=== PATIENT | male | born 1960 | race African-American/Black ===

== ENCOUNTER 2016-09-25 10:37 | Inpatient (IN) | payer OTHER ==
[2016-09-25 11:06] VITALS: BMI 30.4
--- NOTE | 2016-09-25 14:31 | HP ---
CIWA Score - CIWA Score Nausea/Vomitin Muscle Tremors: 4-Moderate,w/Arms Extend Anxiety: 3 Agitation: 4-Moderately Restless Paroxysmal Sweats: 3 Orientation: 0-Oriented Tacttile Disturbances: 1-Very Mild Itch/Numbness Auditory Disturbances: 0-None Visual Disturbances: 0-None Headache: 1-Very Mild CIWA-Ar Total Score: 19 Admission ROS BHS - HPI Chief Complaint: alcohol withdrawal symptoms, requesting inpatient detoxification from lcohol Allergies/Adverse Reactions: Allergies Allergy/AdvReac Type Severity Reaction Status Date / Time chlordiazepoxide HCl Allergy Severe Rash Verified 09/25/16 11:28 [From Librium] History of Present Illness: 56 yo m w h/o alcohol dependence and TABBY, drinks 1/5th spirits daily, no h/o seizures, DTS in past, hallucinated saw spiders on wall, never intabated or admitted to ICU, denies all other illicit drug use PMHx hep c, h/o IDU heorin and cocaine in 80s, no longer using these medications cleared virus with treatment in 2005, nicotien dependence. ros +ve for anxiety, depression , insomnia and tremors, sweats, when he does not drink. Exam Limitations: No Limitations - Ebola screening Have you traveled outside of the country in the last 21 days: No Have you had contact with anyone from an Ebola affected area: No Have you been sick,other than usual withdrawal symptoms: No Do you have a fever: No - Review of Systems Constitutional: Diaphoresis, Loss of Appetite, Changes in sleep, Weakness, Weight Stable EENT: reports: No Symptoms Reported Respiratory: reports: No Symptoms reported Cardiac: reports: No Symptoms Reported GI: reports: No Symptoms Reported, Poor Appetite, Poor Fluid Intake, Indigestion : reports: No Symptoms Reported Integumentary: reports: No Symptoms Reported Neuro: reports: Headache, Tremors, Weakness Endocrine: reports: No Symptoms Reported Hematology: reports: No Symptoms Reported Psychiatric: reports: Judgement Intact, Mood/Affect Appropiate, Orientated x3, Anxious, Depressed Other Systems: Reviewed and Negative Patient History - Patient Medical History Hx Anemia: No Hx Asthma: No Hx Chronic Obstructive Pulmonary Disease (COPD): No Hx Cancer: No Hx Cardiac Disorders: No Hx Congestive Heart Failure: No Hx Hypertension: No Hx Hypercholesterolemia: No Hx Pacemaker: No HX Cerebrovascular Accident: No Hx Seizures: No Hx Dementia: No Hx Diabetes: No Hx Gastrointestinal Disorders: No Hx Liver Disease: No Hx Genitourinary Disorders: No Hx Sexually Transmitted Disorders: No Hx Renal Disease (ESRD): No Hx Thyroid Disease: No Hx Human Immunodeficiency Virus (HIV): No Hx Hepatitis C: Yes (treated 2005, cleared virus) Hx Depression: No Hx Suicide Attempt: No Hx Bipolar Disorder: No Hx Schizophrenia: No - Patient Surgical History Past Surgical History: Yes Hx Neurologic Surgery: No Hx Cataract Extraction: No Hx Cardiac Surgery: No Hx Lung Surgery: No Hx Breast Surgery: No Hx Breast Biopsy: No Hx Abdominal Surgery: No Hx Appendectomy: No Hx Cholecystectomy: No Hx Genitourinary Surgery: No Hx Section: No Hx Orthopedic Surgery: Yes (Fx bilateral ankles s/p) Hx Hysterectomy: No Anesthesia Reaction: No - PPD History Previous Implant?: Yes Documented Results: Negative w/o proof Implanted On Prior [facility] Admission?: No PPD to be Administered?: Yes - Reproductive History Patient is a Female of Child Bearing Age (11 -55 yrs old): No Patient : No - Smoking Cessation Smoking history: Current every day smoker Have you smoked in the past 12 months: Yes Aproximately how many cigarettes per day: 10 Cigars Per Day: 0 Hx Chewing Tobacco Use: No Initiated information on smoking cessation: Yes 'Breaking Loose' booklet given: 09/25/16 - Substance & Tx. History Hx Alcohol Use: Yes Hx Substance Use: No Substance Use Type: Alcohol Hx Substance Use Treatment: Yes (2014 inpatient [facility]? 09/01 [facility]) - Substances Abused Alcohol Route: Oral Frequency: Daily Amount used: FIFTH OF VODKA Age of first use: 16 Date of Last Use: 09/25/16 Family Disease History - Family Disease History Family Disease History: Diabetes: Father (alcoholism), Other: Father, Mother ( alcoholism) Admission Physical Exam BHS - Vital Signs Vital Signs: Vital Signs - 24 hr 09/25/16 11:05 Temperature 96.4 F L Pulse Rate 118 H Respiratory 18 Rate Blood Pressure 153/82 - Physical General Appearance: Yes: Nourished, Appropriately Dressed, Disheveled, Mild Distress, Obese, Sweating, Anxious HEENTM: Yes: Within Normal Limits, EOMI, Hearing grossly Normal, Normal ENT Inspection, Normocephalic, Normal Voice, ANDREW, Pharynx Normal Respiratory: Yes: Within Normal Limits, Chest Non-Tender, Lungs Clear, Normal Breath Sounds, No Respiratory Distress, No Accessory Muscle Use Neck: Yes: Within Normal Limits, No masses,lesions,Nodules, Supple, Trachea in good position Breast: Yes: Breast Exam Deferred Cardiology: Yes: Within Normal Limits, Regular Rhythm, Regular Rate, S1, S2 Abdominal: Yes: Normal Bowel Sounds, Non Tender, Soft, Protuberent, Distended Genitourinary: Yes: Within Normal Limits Back: Yes: Within Normal Limits, Normal Inspection Musculoskeletal: Yes: Within Normal Limits, full range of Motion, Gait Steady Extremities: Yes: Normal Capillary Refill, Normal Range of Motion, Non-Tender, Tremors Neurological: Yes: [facility] II-XII NML intact, Fully Oriented, Alert, Motor Strength 5/5, Normal Response, Depressed Affect Integumentary: Yes: Normal Color, Warm, Diaphoresis, Moist Lymphatic: Yes: Within Normal Limits - Addiitonal Findings: withdrawal sx - Diagnostic (1) Alcohol dependence with uncomplicated withdrawal Current Visit: Yes Status: Acute (2) Nicotine dependence unspecified, with withdrawal Current Visit: Yes Status: Acute (3) Hepatitis C Current Visit: Yes Status: Acute (4) GERD (gastroesophageal reflux disease) Current Visit: Yes Status: Acute (5) Obesity Current Visit: Yes Status: Acute Cleared for Admission [facility] - Detox or Rehab [facility] Level of Care: Medically Managed Detox Regimen/Protocol: Valium [facility] Breath Alcohol Content Breath Alcohol Content: 0.169 Urine Drug Screen - Control Is Test Valid: Yes - Results Drug Screen Negative: No Urine Drug Screen Results: TCA-Tricyclic Antidepress
[2016-09-25] MEDS ORDERED: P-EPHED 60MG/TRIPROLIDI 2.5MG TABLET PO PRN (14:43)
[2016-09-25] MEDS ORDERED: IBUPROFEN 400 MG TABLET (FP) PO PRN (14:43)
[2016-09-25] MEDS ORDERED: NICOTINE POLACRILEX 2 MG GUM BUC PRN (14:43)
[2016-09-25] MEDS ORDERED: MAG HYDROX/AL HYDROX/SIMETH 30 ML UNIT-DOSE CUP PO PRN (14:43)
[2016-09-25] MEDS ORDERED: MENTHOL/PHENOL 1 EACH UD MM PRN (14:43)
[2016-09-25] MEDS ORDERED: ACETAMINOPHEN 325 MG TABLET (FP) PO PRN (14:43)
[2016-09-25] MEDS ORDERED: hydrOXYzine PAMOATE 50 MG CAPSULE (FP) PO PRN (14:43)
[2016-09-25] MEDS ORDERED: MAGNESIUM HYDROX 2400MG/30ML ORAL SUSPENSION 30 ML CUP PO PRN (14:43)
[2016-09-25] MEDS ORDERED: LOPERAMIDE HCL 2 MG CAPSULE PO PRN (14:43)
[2016-09-25] MEDS ORDERED: guaiFENesin/D-METHORPHAN HB 10 ML UNIT-DOSE CUPS PO PRN (14:43)
[2016-09-25] MEDS ORDERED: MAGNESIUM CITRATE 300 ML BOTTLE PO PRN (14:43)
[2016-09-25] MEDS ORDERED: diphenhydrAMINE HCL 50 MG CAPSULE PO PRN (14:43)
[2016-09-25] MEDS ORDERED: diazePAM 5 MG TABLET PO ONE (14:47)
[2016-09-25 15:00] LABS: HIV 1 & 2 AB NEGATIVE; HIV 1 AGp24 NEGATIVE
[2016-09-25] MEDS: NICOTINE 14 MG/24 HOURS TOPICAL PATCH TD SCH (15:25)
[2016-09-25 20:57] LABS: URINE APPEARANCE CLEAR; URINE BILIRUBIN NEGATIVE (NEGATIVE); URINE BLOOD NEGATIVE (NEGATIVE); URINE COLOR YELLOW; URINE GLUCOSE (UA) NEGATIVE (NEGATIVE); URINE KETONE NEGATIVE (NEGATIVE); URINE LEUK ESTERASE NEGATIVE (NEGATIVE); URINE NITRITE NEGATIVE (NEGATIVE); URINE PROTEIN NEGATIVE (NEGATIVE); URINE UROBILINOGEN 2.0 E.U/dl E.U./dl (0.2-1.0)
[2016-09-25] MEDS: diazePAM 5 MG TABLET PO SCH (22:25)
[2016-09-25] MEDS: THIAMINE HCL 100 MG TABLET (FP) PO SCH (22:25)
[2016-09-26] MEDS: diazePAM 5 MG TABLET PO SCH ×3 (05:33→22:21)
--- NOTE | 2016-09-26 10:11 | EKG ---
Test Reason : Blood Pressure : / mmHG Vent. Rate : 099 BPM Atrial Rate : 099 BPM P-R Int : 146 ms QRS Dur : 092 ms QT Int : 336 ms P-R-T Axes : 062 001 034 degrees QTc Int : 431 ms NORMAL SINUS RHYTHM POSSIBLE LEFT ATRIAL ENLARGEMENT NO PREVIOUS ECGS AVAILABLE Confirmed by NARA ELAINE MD ([id number]) on 09/26/2016 10:11:08 AM Referred By: Shahid Elizalde Confirmed By:NARA ELAINE MD
[2016-09-26 10:13] LABS: MCH 30.8 pg (25.7-33.7); MCHC 33.4 g/dl (32.0-35.9); MEAN PLT VOLUME 9.9 fl (7.5-11.1); PLATELET COUNT 124 K/MM3 (134-434); RDW 13.9 % (11.9-15.9)
[2016-09-26] MEDS: PRENATAL VITAMINS W/ FOLIC ACID TABLET (FP) PO SCH (10:26)
[2016-09-26] MEDS: NICOTINE 14 MG/24 HOURS TOPICAL PATCH TD SCH (10:26)
[2016-09-26 10:32] LABS: ALBUMIN 4.4 g/dl (3.4-5.0); ALK PHOS 107 U/L (45-117); ANION GAP 13 (8-16); BILIRUBIN,TOTAL 0.4 mg/dL (0.2-1.0); CALCIUM 8.2 mg/dL (8.5-10.1); CO2 25 mmol/L (21-32); CREATININE 0.9 mg/dL (0.7-1.3); GLUCOSE,RANDOM 93 mg/dL (74-106); SGOT/AST 238 U/L (15-37); SGPT/ALT 170 U/L (12-78); TOT PROT 7.7 g/dl (6.4-8.2)
--- NOTE | 2016-09-26 11:37 | PN ---
S CIWA - CIWA Score Nausea/Vomitin Muscle Tremors: 4-Moderate,w/Arms Extend Anxiety: 4-Mod. Anxious/Guarded Agitation: 4-Moderately Restless Paroxysmal Sweats: 3 Orientation: 0-Oriented Tacttile Disturbances: 1-Very Mild Itch/Numbness Auditory Disturbances: 0-None Visual Disturbances: 0-None Headache: 0-None Present CIWA-Ar Total Score: 19 BHS Progress Note (SOAP) Subjective: nausea, sweats, interrupted sleep, anxiety, tremors Objective: 09/26/16 11:36 Vital Signs - 24 hr 09/25/16 09/25/16 09/25/16 15:42 18:04 21:42 Temperature 97.6 F 98.0 F 97.4 F L Pulse Rate 102 H 101 H 109 H Respiratory 20 20 20 Rate Blood Pressure 148/88 134/71 127/77 09/26/16 09/26/16 09/26/16 00:12 03:30 06:29 Temperature 97.6 F Pulse Rate 83 Respiratory 18 18 18 Rate Blood Pressure 148/98 09/26/16 10:00 Temperature 99.3 F Pulse Rate 92 H Respiratory 20 Rate Blood Pressure 151/98 Laboratory Tests 09/25/16 09/25/16 09/26/16 12:10 19:00 06:00 WBC 5.0 RBC 5.06 Hgb 15.6 Hct 46.5 MCV 92.0 MCHC 33.4 RDW 13.9 Plt Count 124 L MPV 9.9 Sodium Potassium Chloride Carbon Dioxide Anion Gap BUN Creatinine Creat Clearance w eGFR Random Glucose Calcium Total Bilirubin AST ALT Alkaline Phosphatase Total Protein Albumin Urine Color Yellow Urine Appearance Clear Urine pH 5.0 Ur Specific [place] 1.019 Urine Protein Negative Urine Glucose (UA) Negative Urine Ketones Negative Urine Blood Negative Urine Nitrite Negative Urine Bilirubin Negative Urine Urobilinogen 2.0 e.u/dl Ur Leukocyte Esterase Negative HIV 1&2 Antibody Screen Negative HIV P24 Antigen Negative 09/26/16 06:00 WBC RBC Hgb Hct MCV MCHC RDW Plt Count MPV Sodium 141 Potassium 3.7 Chloride 103 Carbon Dioxide 25 Anion Gap 13 BUN 7 Creatinine 0.9 Creat Clearance w eGFR > 60 Random Glucose 93 Calcium 8.2 L Total Bilirubin 0.4 AST 238 H ALT 170 H Alkaline Phosphatase 107 Total Protein 7.7 Albumin 4.4 Urine Color Urine Appearance Urine pH Ur Specific [place] Urine Protein Urine Glucose (UA) Urine Ketones Urine Blood Urine Nitrite Urine Bilirubin Urine Urobilinogen Ur Leukocyte Esterase HIV 1&2 Antibody Screen HIV P24 Antigen Assessment: 09/26/16 11:36 withdrawal sx, elevated bp Plan: cont detox, fluids, encourage ambulation
[2016-09-26] MEDS ORDERED: INFLUENZA VACCINE 45 MCG/0.5 ML (MDV 16-17) IM ONE (12:00)
[2016-09-26] MEDS: amLODIPine BESYLATE 5 MG TABLET (FP) PO SCH (12:15)
--- NOTE | 2016-09-26 14:57 | CONSULT ---
[facility] Psychiatric Consult - Data Date of interview: 09/26/16 Admission source: [facility] Identifying data: Readmission to [facility] for this 56 y/o AA male seeking detox treatment on for alcohol dependence.Patient is single without children,domiciled,unemployed and supported on Public Assistance. Substance Abuse History: - Smoking Cessation. Smoking history: Current every day smoker. Have you smoked in the past 12 months: Yes. Aproximately how many cigarettes per day: 10. Cigars Per Day: 0. Hx Chewing Tobacco Use: No. Initiated information on smoking cessation: Yes. 'Breaking Loose' booklet given : 09/25/16. - Substance & Tx. History. Hx Alcohol Use: Yes. Hx Substance Use : No. Substance Use Type: Alcohol. Hx Substance Use Treatment: Yes (2014 inpatient detox [facility]? 09/01 [facility]). - Substances Abused. Alcohol. Route: Oral. Frequency: Daily. Amount used: FIFTH OF VODKA. Age of first use: 16. Date of Last Use: 09/25/16. Confirmed by patient in my interview. Medical History: Remarkable for a history of hepatitis c (treated in 2005). Psychiatric History: Patient denies. Physical/Sexual Abuse/Trauma History: Patient denies. Additional Comment: Urine Drug Screen Results: TCA-Tricyclic Antidepressant.Noted. Mental Status Exam - Mental Status Exam Alert and Oriented to: Time, Place, Person Cognitive Function: Good Patient Appearance: Well Groomed Mood: Withdrawn, Hopeful Affect: Appropriate, Normal Range Patient Behavior: Fatigued, Appropriate, Cooperative Speech Pattern: Clear, Appropriate Voice Loudness: Normal Thought Process: Goal Oriented Thought Disorder: Not Present Hallucinations: Denies Suicidal Ideation: Denies Homicidal Ideation: Denies Insight/Judgement: Poor Sleep: Poorly, Difficulty falling asleep Appetite: Good Muscle strength/Tone: Normal Gait/Station: Normal Psychiatric Findings - Problem List ([place] 1, 2,3) (1) Alcohol dependence with uncomplicated withdrawal Current Visit: Yes Status: Acute (2) GERD (gastroesophageal reflux disease) Current Visit: Yes Status: Acute (3) Hepatitis C Current Visit: Yes Status: Acute (4) Nicotine dependence unspecified, with withdrawal Current Visit: Yes Status: Acute (5) Obesity Current Visit: Yes Status: Acute (6) Insomnia Current Visit: Yes Status: Acute - Initial Treatment Plan Initial Treatment Plan: Psychoeducation.Detoxification.Zolpidem 5 mg po hs prn.Patient made aware of the risk of parasomnias.He agrees with this careplan.Observation.
[2016-09-26] MEDS: THIAMINE HCL 100 MG TABLET (FP) PO SCH (22:21)
[2016-09-26] MEDS: ZOLPIDEM TARTRATE 5 MG TABLET PO PRN (22:23)
[2016-09-27] MEDS: diazePAM 5 MG TABLET PO PRN ×3 (05:23→17:29)
--- NOTE | 2016-09-27 09:56 | PN ---
S CIWA - CIWA Score Nausea/Vomitin-No Nausea/No Vomiting Muscle Tremors: 3 Anxiety: 4-Mod. Anxious/Guarded Agitation: 4-Moderately Restless Paroxysmal Sweats: 3 Orientation: 0-Oriented Tacttile Disturbances: 0-None Auditory Disturbances: 0-None Visual Disturbances: 0-None Headache: 0-None Present CIWA-Ar Total Score: 14 BHS Progress Note (SOAP) Subjective: TREMORS,SWEATING,ANXIETY,INTERRUPTED SLEEP,RESTLESS Objective: 09/27/16 09:54 Vital Signs - 8 hr 09/27/16 09/27/16 03:19 06:06 Temperature 97.3 F L Pulse Rate 79 Respiratory 18 18 Rate Blood Pressure 160/83 Laboratory Tests 09/25/16 09/25/16 09/26/16 12:10 19:00 06:00 WBC 5.0 RBC 5.06 Hgb 15.6 Hct 46.5 MCV 92.0 MCHC 33.4 RDW 13.9 Plt Count 124 L MPV 9.9 Sodium Potassium Chloride Carbon Dioxide Anion Gap BUN Creatinine Creat Clearance w eGFR Random Glucose Calcium Total Bilirubin AST ALT Alkaline Phosphatase Total Protein Albumin Urine Color Yellow Urine Appearance Clear Urine pH 5.0 Ur Specific [place] 1.019 Urine Protein Negative Urine Glucose (UA) Negative Urine Ketones Negative Urine Blood Negative Urine Nitrite Negative Urine Bilirubin Negative Urine Urobilinogen 2.0 e.u/dl Ur Leukocyte Esterase Negative RPR Titer HIV 1&2 Antibody Screen Negative HIV P24 Antigen Negative 09/26/16 09/26/16 06:00 06:00 WBC RBC Hgb Hct MCV MCHC RDW Plt Count MPV Sodium 141 Potassium 3.7 Chloride 103 Carbon Dioxide 25 Anion Gap 13 BUN 7 Creatinine 0.9 Creat Clearance w eGFR > 60 Random Glucose 93 Calcium 8.2 L Total Bilirubin 0.4 AST 238 H ALT 170 H Alkaline Phosphatase 107 Total Protein 7.7 Albumin 4.4 Urine Color Urine Appearance Urine pH Ur Specific [place] Urine Protein Urine Glucose (UA) Urine Ketones Urine Blood Urine Nitrite Urine Bilirubin Urine Urobilinogen Ur Leukocyte Esterase RPR Titer Nonreactive HIV 1&2 Antibody Screen HIV P24 Antigen LABS NOTED Assessment: 09/27/16 09:55 WITHDRAWAL SX. Plan: CONTINUE DETOX
[2016-09-27] MEDS: NICOTINE 14 MG/24 HOURS TOPICAL PATCH TD SCH (10:13)
[2016-09-27] MEDS: diazePAM 5 MG TABLET PO SCH ×2 (10:13→22:19)
[2016-09-27] MEDS: amLODIPine BESYLATE 5 MG TABLET (FP) PO SCH (10:13)
[2016-09-27] MEDS: PRENATAL VITAMINS W/ FOLIC ACID TABLET (FP) PO SCH (10:13)
[2016-09-27] MEDS: THIAMINE HCL 100 MG TABLET (FP) PO SCH (22:19)
[2016-09-27] MEDS: ZOLPIDEM TARTRATE 5 MG TABLET PO PRN (22:19)
[2016-09-28] MEDS: diazePAM 5 MG TABLET PO PRN (05:35)
[2016-09-28] MEDS: NICOTINE 14 MG/24 HOURS TOPICAL PATCH TD SCH (10:16)
[2016-09-28] MEDS: PRENATAL VITAMINS W/ FOLIC ACID TABLET (FP) PO SCH (10:16)
[2016-09-28] MEDS: amLODIPine BESYLATE 5 MG TABLET (FP) PO SCH (10:16)
[2016-09-28] MEDS: diazePAM 5 MG TABLET PO SCH ×2 (10:16→22:21)
--- NOTE | 2016-09-28 13:40 | PN ---
BHS Progress Note (SOAP) Subjective: Sweating, anxious, nausea, restless Objective: 09/28/16 13:38 Last Vital Signs Temp Pulse Resp BP Pulse Ox 95.7 F L 87 18 138/90 09/28/16 13:04 09/28/16 13:04 09/28/16 13:04 09/28/16 13:04 Laboratory Tests 09/25/16 09/25/16 09/26/16 12:10 19:00 06:00 WBC 5.0 RBC 5.06 Hgb 15.6 Hct 46.5 MCV 92.0 MCHC 33.4 RDW 13.9 Plt Count 124 L MPV 9.9 Sodium Potassium Chloride Carbon Dioxide Anion Gap BUN Creatinine Creat Clearance w eGFR Random Glucose Calcium Total Bilirubin AST ALT Alkaline Phosphatase Total Protein Albumin Urine Color Yellow Urine Appearance Clear Urine pH 5.0 Ur Specific [place] 1.019 Urine Protein Negative Urine Glucose (UA) Negative Urine Ketones Negative Urine Blood Negative Urine Nitrite Negative Urine Bilirubin Negative Urine Urobilinogen 2.0 e.u/dl Ur Leukocyte Esterase Negative RPR Titer HIV 1&2 Antibody Screen Negative HIV P24 Antigen Negative 09/26/16 09/26/16 06:00 06:00 WBC RBC Hgb Hct MCV MCHC RDW Plt Count MPV Sodium 141 Potassium 3.7 Chloride 103 Carbon Dioxide 25 Anion Gap 13 BUN 7 Creatinine 0.9 Creat Clearance w eGFR > 60 Random Glucose 93 Calcium 8.2 L Total Bilirubin 0.4 AST 238 H ALT 170 H Alkaline Phosphatase 107 Total Protein 7.7 Albumin 4.4 Urine Color Urine Appearance Urine pH Ur Specific [place] Urine Protein Urine Glucose (UA) Urine Ketones Urine Blood Urine Nitrite Urine Bilirubin Urine Urobilinogen Ur Leukocyte Esterase RPR Titer Nonreactive HIV 1&2 Antibody Screen HIV P24 Antigen Labs noted Assessment: 09/28/16 13:38 Withdrawal symptoms Plan: Continue detox
[2016-09-28] MEDS: THIAMINE HCL 100 MG TABLET (FP) PO SCH (22:21)
[2016-09-28] MEDS: ZOLPIDEM TARTRATE 5 MG TABLET PO PRN (22:21)
[2016-09-29] MEDS: PRENATAL VITAMINS W/ FOLIC ACID TABLET (FP) PO SCH (09:03)
[2016-09-29] MEDS: amLODIPine BESYLATE 5 MG TABLET (FP) PO SCH (09:04)
--- NOTE | 2016-09-29 09:30 | DS ---
[facility] Detox Discharge Summary Admission Date: 09/25/16 Discharge Date: 09/29/16 - History Present History: Alcohol Dependence Pertinent Past History: gerd hep c - Physical Exam Results Vital Signs: Vital Signs Temperature 97.5 F L 09/29/16 06:07 Pulse Rate 70 09/29/16 06:07 Respiratory Rate 18 09/29/16 06:07 Blood Pressure 145/94 09/29/16 06:07 O2 Sat by Pulse Oximetry (%) Pertinent Admission Physical Exam Findings: withdrawal sx. Laboratory Last Values WBC 5.0 K/mm3 (4.0-10.0) 09/26/16 06:00 RBC 5.06 M/mm3 (4.00-5.60) 09/26/16 06:00 Hgb 15.6 GM/dL (11.7-16.9) 09/26/16 06:00 Hct 46.5 % (35.4-49) 09/26/16 06:00 MCV 92.0 fl (80-96) 09/26/16 06:00 MCHC 33.4 g/dl (32.0-35.9) 09/26/16 06:00 RDW 13.9 % (11.9-15.9) 09/26/16 06:00 Plt Count 124 K/MM3 (134-434) L 09/26/16 06:00 MPV 9.9 fl (7.5-11.1) 09/26/16 06:00 Sodium 141 mmol/L (136-145) 09/26/16 06:00 Potassium 3.7 mmol/L (3.5-5.1) 09/26/16 06:00 Chloride 103 mmol/L (98-107) 09/26/16 06:00 Carbon Dioxide 25 mmol/L (21-32) 09/26/16 06:00 Anion Gap 13 (8-16) 09/26/16 06:00 BUN 7 mg/dL (7-18) 09/26/16 06:00 Creatinine 0.9 mg/dL (0.7-1.3) 09/26/16 06:00 Creat Clearance w eGFR > 60 (>60) 09/26/16 06:00 Random Glucose 93 mg/dL (74-106) 09/26/16 06:00 Calcium 8.2 mg/dL (8.5-10.1) L 09/26/16 06:00 Total Bilirubin 0.4 mg/dL (0.2-1.0) 09/26/16 06:00 AST 238 U/L (15-37) H 09/26/16 06:00 ALT 170 U/L (12-78) H 09/26/16 06:00 Alkaline Phosphatase 107 U/L (45-117) 09/26/16 06:00 Total Protein 7.7 g/dl (6.4-8.2) 09/26/16 06:00 Albumin 4.4 g/dl (3.4-5.0) 09/26/16 06:00 Urine Color Yellow 09/25/16 19:00 Urine Appearance Clear 09/25/16 19:00 Urine pH 5.0 (5.0-8.0) 09/25/16 19:00 Ur Specific [place] 1.019 (1.001-1.035) 09/25/16 19:00 Urine Protein Negative (NEGATIVE) 09/25/16 19:00 Urine Glucose (UA) Negative (NEGATIVE) 09/25/16 19:00 Urine Ketones Negative (NEGATIVE) 09/25/16 19:00 Urine Blood Negative (NEGATIVE) 09/25/16 19:00 Urine Nitrite Negative (NEGATIVE) 09/25/16 19:00 Urine Bilirubin Negative (NEGATIVE) 09/25/16 19:00 Urine Urobilinogen 2.0 e.u/dl E.U./dl (0.2-1.0) 09/25/16 19:00 Ur Leukocyte Esterase Negative (NEGATIVE) 09/25/16 19:00 RPR Titer Nonreactive (NONREACTIVE) 09/26/16 06:00 HIV 1&2 Antibody Screen Negative 09/25/16 12:10 HIV P24 Antigen Negative 09/25/16 12:10 labs noted - Treatment Hospital Course: Detox Protocol Followed, Detoxed Safely, Responded well, Discharged Condition Good, Rehab Referral Accepted - Medication Discharge Medications: Ambulatory Orders NK [No Known Home Medication] 09/25/16 - Diagnosis (1) Alcohol dependence with uncomplicated withdrawal Current Visit: Yes Status: Acute (2) GERD (gastroesophageal reflux disease) Current Visit: Yes Status: Acute Qualifiers: Esophagitis presence: without esophagitis Qualified Code(s): K21.9 - Gastro-esophageal reflux disease without esophagitis (3) Hepatitis C Current Visit: Yes Status: Acute (4) Insomnia Current Visit: Yes Status: Acute (5) Nicotine dependence unspecified, with withdrawal Current Visit: Yes Status: Acute Qualifiers: Nicotine product type: cigarettes Qualified Code(s): F17.213 - Nicotine dependence, cigarettes, with withdrawal - AMA Did Patient Leave Against Medical Advice: No
[2016-09-29 09:37] VITALS: BP 158/101; PULSE 81; TEMP 97.2
[2016-09-29] MEDS ORDERED: diazePAM 5 MG TABLET PO SCH (10:00)
== END 2016-09-29 08:36 | disposition home or self-care (01) | DRG 775 ==
LOC: YASAS 10:37 → Y3N 12:04
PROVIDERS: ADMIT Internal Medicine; ATTEND Internal Medicine
PROC: HZ2ZZZZ Detoxification Services for Substance Abuse Treatment (ICD-10-PCS; principal; 2016-09-29)
DX: F10.230 Alcohol dependence with withdrawal, uncomplicated (principal); F17.213 Nicotine dependence, cigarettes, with withdrawal; B18.2 Chronic viral hepatitis C; G47.00 Insomnia, unspecified; K21.9 Gastro-esophageal reflux disease without esophagitis; E66.9 Obesity, unspecified; Z68.30 Body mass index [BMI] 30.0-30.9, adult
CPT/HCPCS: 36415; 80053; 81003; 85027; 86593; 87389; 93005; 93010

== ENCOUNTER 2020-03-03 10:26 | Inpatient (IN) | payer OTHER ==
--- NOTE | 2020-03-03 12:18 | HP ---
CIWA Score - Admission Criteria [facility] Guidelines: Admission for Medically Managed Detox: Requires at least one of the followin. CIWA greater than 12 2. Seizures within the past 24 hours 3. Delirium tremens within the past 24 hours 4. Hallucinations within the past 24 hours 5. Acute intervention needed for co occurring medical disorder 6. Acute intervention needed for co occurring psychiatric disorder 7. Severe withdrawal that cannot be handled at a lower level of care (continued vomiting, continued diarrhea, abnormal vital signs) requiring intravenous medication and/or fluids 8. Admitting History and Physical - Smoking History Smoking history: Current every day smoker Have you smoked in the past 12 months: Yes Aproximately how many cigarettes per day: 10 - Alcohol/Substance Use Hx Alcohol Use: Yes Admission [facility] Allergies/Adverse Reactions: Allergies Allergy/AdvReac Type Severity Reaction Status Date / Time chlordiazepoxide HCl Allergy Severe Rash Verified 09/25/16 11:28 [From Librium] Patient History - Patient Medical History Hx Anemia: No Hx Asthma: No Hx Chronic Obstructive Pulmonary Disease (COPD): No Hx Cancer: No Hx Cardiac Disorders: No Hx Congestive Heart Failure: No Hx Hypertension: No Hx Hypercholesterolemia: No Hx Pacemaker: No HX Cerebrovascular Accident: No Hx Seizures: No Hx Dementia: No Hx Diabetes: No Hx Gastrointestinal Disorders: No Hx Liver Disease: No Hx Genitourinary Disorders: No Hx Sexually Transmitted Disorders: No Hx Renal Disease (ESRD): No Hx Thyroid Disease: No Hx Human Immunodeficiency Virus (HIV): No Hx Hepatitis C: Yes (treated 2005, cleared virus) Hx Depression: No Hx Suicide Attempt: No Hx Bipolar Disorder: No Hx Schizophrenia: No - Patient Surgical History Past Surgical History: Yes Hx Neurologic Surgery: No Hx Cataract Extraction: No Hx Cardiac Surgery: No Hx Lung Surgery: No Hx Breast Surgery: No Hx Breast Biopsy: No Hx Abdominal Surgery: No Hx Appendectomy: No Hx Cholecystectomy: No Hx Genitourinary Surgery: No Hx Section: No Hx Orthopedic Surgery: Yes (Fx bilateral ankles s/p) Hx Hysterectomy: No Anesthesia Reaction: No - PPD History Date: 09/27/16 - Smoking Cessation Smoking history: Current every day smoker Have you smoked in the past 12 months: Yes Aproximately how many cigarettes per day: 10 Cigars Per Day: 0 Hx Chewing Tobacco Use: No
--- NOTE | 2020-03-03 12:19 | BHS.RME ---
Substance Use & Tx History - Substance Use History Alcohol Substance amount: 5tth of vodka/6 of 6 packs of 16 ozs of beer Frequency of use: Daily Substance route: Oral Date of Last Use: 03/03/20 Cocaine-Crack Substance amount: 100 $ to 200$ Frequency of use: Once a month Substance route: Smoking Date of Last Use: 03/01/20 - Last Treatment Date of last treatment: 09/25/16 to 09/29/16 [facility] Where was last treatment: Detox Physical/Psych/Mental Status - Behavior Eye Contact: Normal - Cooperativeness Cooperativeness: Cooperative - Thinking Thought Processes: Logical Thought content: Future oriented - Physical Health Problems Is patient presently having any pain?: No Does patient presently have any injuries (include location): No Does patient currently have a fever: No CIWA Nausea/Vomitin Muscle Tremors: 3 Anxiety: 3 Agitation: 2 Paroxysmal Sweats: No Perspiration Orientation: 0-Oriented Tacttile Disturbances: 1-Very Mild Itch/Numbness Auditory Disturbances: 0-None Visual Disturbances: 2-Mild Sensitivity Headache: 2-Mild CIWA-Ar Total Score: 15
--- NOTE | 2020-03-03 12:33 | HP ---
CIWA Score Nausea/Vomitin Muscle Tremors: 3 Anxiety: 3 Agitation: 2 Paroxysmal Sweats: No Perspiration Orientation: 0-Oriented Tacttile Disturbances: 1-Very Mild Itch/Numbness Auditory Disturbances: 0-None Visual Disturbances: 2-Mild Sensitivity Headache: 2-Mild CIWA-Ar Total Score: 15 - Admission Criteria OASAS Guidelines: Admission for Medically Managed Detox: Requires at least one of the followin. CIWA greater than 12 2. Seizures within the past 24 hours 3. Delirium tremens within the past 24 hours 4. Hallucinations within the past 24 hours 5. Acute intervention needed for co occurring medical disorder 6. Acute intervention needed for co occurring psychiatric disorder 7. Severe withdrawal that cannot be handled at a lower level of care (continued vomiting, continued diarrhea, abnormal vital signs) requiring intravenous medication and/or fluids 8. Admitting History and Physical - Admission Chief Complaint: i need help to stop drinking alcohol History of Present Illness: this 59 years olfd male with alcohol and cocaine dependence seeking detox,withdrawal symptom,last detox 09/25/16 to 09/29/16 History Source: Patient Limitations to Obtaining History: No Limitations - Past Medical History [employer]: Yes: Syncope Cardiovascular: Yes: HTN Gastrointestinal: Yes: GERD - Smoking History Smoking history: Current every day smoker Have you smoked in the past 12 months: Yes Aproximately how many cigarettes per day: 10 - Alcohol/Substance Use Hx Alcohol Use: Yes History of Substance Use: reports: Cocaine - Social History Usual Living Arrangement: Yes: Alone Do you think of yourself as: Straight/Heterosexual ADL: Support Services Occupation: unemployed History of Recent Travel: No Other Social History: unemployed,nicotine dependence,no legal issue,positive eye revenue cycle specialist Admission ROS [facility] - HPI Chief Complaint: i need heelp to stop drinking alcohol Allergies/Adverse Reactions: Allergies Allergy/AdvReac Type Severity Reaction Status Date / Time chlordiazepoxide HCl Allergy Severe Rash Verified 03/03/20 13:18 [From Librium] History of Present Illness: this 59 years old male with alcohol dependence,cocaine abused,seeking detox,w ithdrawal symptom, last detox to 09/29/16 syncope denied seizure htn gerd bipolar disorder,ptsd longest sobriety 8 months unemployed,positive eye revenue cycle specialist,no egal issue plan for rehab after detox Exam Limitations: No Limitations - Ebola screening Have you traveled outside of the country in the last 21 days: No Have you had contact with anyone from an Ebola affected area: No Have you been sick,other than usual withdrawal symptoms: No Do you have a fever: No - Review of Systems Constitutional: Loss of Appetite, Malaise, Night Sweats, Changes in sleep, Weakness EENT: reports: Nose Congestion Respiratory: reports: No Symptoms reported Cardiac: reports: No Symptoms Reported GI: reports: Nausea, Poor Appetite, Vomiting, Abdominal cramping : reports: No Symptoms Reported Musculoskeletal: reports: Back Pain, Muscle Pain Integumentary: reports: Dryness Neuro: reports: No Symptoms reported Endocrine: reports: No Symptoms Reported Hematology: reports: No Symptoms Reported Psychiatric: reports: No Sypmtoms Reported, Judgement Intact, Mood/Affect Appropiate, Orientated x3, other (bipolar disorder,ptsd,personality disorder) Patient History - Patient Medical History Hx Anemia: No Hx Asthma: No Hx Chronic Obstructive Pulmonary Disease (COPD): No Hx Cancer: No Hx Cardiac Disorders: No Hx Congestive Heart Failure: No Hx Hypertension: Yes (on med) Hx Hypercholesterolemia: No Hx Pacemaker: No HX Cerebrovascular Accident: No Hx Seizures: No Hx Dementia: No Hx Diabetes: No Hx Gastrointestinal Disorders: No Hx Liver Disease: No Hx Genitourinary Disorders: No Hx Sexually Transmitted Disorders: No Hx Renal Disease (ESRD): No Hx Thyroid Disease: No Hx Human Immunodeficiency Virus (HIV): No Hx Hepatitis C: Yes (treated 2005, cleared virus) Hx Depression: No Hx Suicide Attempt: No Hx Bipolar Disorder: Yes (depression) Hx Schizophrenia: No Other Medical History: personality disorder,no suicidal,no homicidal - Patient Surgical History Past Surgical History: Yes Hx Neurologic Surgery: No Hx Cataract Extraction: No Hx Cardiac Surgery: No Hx Lung Surgery: No Hx Breast Surgery: No Hx Breast Biopsy: No Hx Abdominal Surgery: No Hx Appendectomy: No Hx Cholecystectomy: No Hx Genitourinary Surgery: No Hx Section: No Hx Orthopedic Surgery: Yes (Fx right ankle in 2005,fx left ankle in 1985) Hx Hysterectomy: No Anesthesia Reaction: No - PPD History Previous Implant?: Yes Documented Results: Negative w/o proof Implanted On Prior R Admission?: Yes Date: 09/27/16 PPD to be Administered?: Yes - Smoking Cessation Smoking history: Current every day smoker Have you smoked in the past 12 months: Yes Aproximately how many cigarettes per day: 10 Cigars Per Day: 0 Hx Chewing Tobacco Use: No Initiated information on smoking cessation: Yes 'Breaking Loose' booklet given: 03/03/20 - Substance & Tx. History Hx Alcohol Use: Yes Hx Substance Use: Yes Substance Use Type: Alcohol, Cocaine Hx Substance Use Treatment: Yes ([facility] 09/25/16 t 09/29/16) - Substances abused Alcohol Substance route: Oral Frequency: Daily Amount used: 1/5th of odka/6 packs of 16 ozs of beer Age of first use: 17 Date of last use: 03/03/20 Crack Substance route: Smoking Frequency: 1-3 times last 30 days Amount used: 100 to 200$ Age of first use: 17 Date of last use: 03/01/[address] [facility] - Physical General Appearance: Yes: Moderate Distress, Tremorous, Irritable, Sweating, Anxious HEENTM: Yes: Normal ENT Inspection, Normocephalic, ANDREW Respiratory: Yes: Lungs Clear, Normal Breath Sounds, No Respiratory Distress Neck: Yes: Within Normal Limits, Supple, Trachea in good position Breast: Yes: Within Normal Limits Cardiology: Yes: Within Normal Limits, Regular Rhythm, Regular Rate, S1, S2 Abdominal: Yes: Within Normal Limits, Normal Bowel Sounds, Non Tender, Flat, Soft Genitourinary: Yes: Within Normal Limits Back: Yes: Muscle Spasm Musculoskeletal: Yes: Back pain, Muscle Pain Extremities: Yes: Tremors, Other (scar both ankles) Neurological: Yes: prototyper II-XII NML intact, Alert, Motor Strength 5/5 Integumentary: Yes: Dry Lymphatic: Yes: Within Normal Limits - Diagnostic (1) Alcohol dependence with uncomplicated withdrawal Current Visit: Yes Status: Acute (2) GERD (gastroesophageal reflux disease) Current Visit: No Status: Acute Qualifiers: Esophagitis presence: without esophagitis Qualified Code(s): K21.9 - Gastro-esophageal reflux disease without esophagitis (3) Hepatitis C Current Visit: No Status: Acute (4) Insomnia Current Visit: No Status: Acute (5) Nicotine dependence unspecified, with withdrawal Current Visit: No Status: Acute Qualifiers: Nicotine product type: cigarettes Qualified Code(s): F17.213 - Nicotine dependence, cigarettes, with withdrawal (6) Cocaine abuse Current Visit: Yes Status: Acute (7) Bipolar disorder Current Visit: Yes Status: Acute (8) Depression Current Visit: Yes Status: Acute (9) Personality disorder Current Visit: Yes Status: Acute Cleared for Admission S - Detox or Rehab [facility] Level of Care: Medically Managed Detox Regimen/Protocol: Ativan Inpatient Rehab Admission - Rehab Decision to Admit Inpatient rehab admission?: No
[2020-03-03] MEDS ORDERED: MENTHOL/PHENOL 1 EACH UD MM PRN (12:51)
[2020-03-03] MEDS ORDERED: LORazepam 1 MG TABLET PO PRN (12:51)
[2020-03-03] MEDS ORDERED: IBUPROFEN 400 MG TABLET (FP) PO PRN (12:51)
[2020-03-03] MEDS ORDERED: ACETAMINOPHEN 325 MG TABLET (FP) PO PRN ×2 (12:51)
[2020-03-03] MEDS ORDERED: METHOCARBAMOL 500 MG TABLET PO PRN (12:51)
[2020-03-03] MEDS ORDERED: MAGNESIUM CITRATE 300 ML BOTTLE PO PRN (12:51)
[2020-03-03] MEDS ORDERED: BISMUTH SUBSALICYLATE 524 MG/30 ML UD PO PRN (12:51)
[2020-03-03] MEDS ORDERED: MAGNESIUM HYDROX 2400MG/30ML ORAL SUSPENSION 30 ML CUP PO PRN (12:51)
[2020-03-03] MEDS ORDERED: NICOTINE POLACRILEX 2 MG GUM BUC PRN (12:51)
[2020-03-03] MEDS ORDERED: MAG HYDROX/AL HYDROX/SIMETH 30 ML UNIT-DOSE CUP PO PRN (12:51)
[2020-03-03 13:28] VITALS: BMI 31.7
[2020-03-03] MEDS ORDERED: ONDANSETRON *ODT* 4 MG TABLET SL ONE (13:30)
[2020-03-03] MEDS: hydrOXYzine PAMOATE 25 MG CAPSULE (FP) PO SCH ×3 (14:02→23:29)
--- NOTE | 2020-03-03 15:13 | CONSULT ---
[facility] Psychiatric Consult - Data Date of interview: 03/03/20 Admission source: [facility] Identifying data: Readmission to [facility] for this 56 y/o AA male seeking detox treatment on for alcohol dependence. Patient is single without children, domiciled, unemployed and supported on Public Assistance. Substance Abuse History: Smoking history: Current every day smoker. Have you smoked in the past 12 months: Yes. Aproximately how many cigarettes per day: 10. Cigars Per Day: 0. Hx Chewing Tobacco Use: No. Initiated information on smoking cessation: Yes. 'Breaking Loose' booklet given: 03/03/20. - Substance & Tx. History. Hx Alcohol Use: Yes. Hx Substance Use: Yes. Substance Use Type: Alcohol, Cocaine. Hx Substance Use Treatment: Yes ([facility] 09/25/16 t 09/29/16). - Substances abused. Alcohol. Substance route: Oral. Frequency: Daily. Amount used: 1/5th of odka/6 packs of 16 ozs of beer. Age of first use: 17. Date of last use: 03/03/20. Crack. Substance route: Smoking. Frequency: 1-3 times last 30 days. Amount used: 100 to 200$. Age of first use: 17. Date of last use: 03/01/20 Medical History: Medical profile is remarkable for GERD, hypertension, hepatitis C (treated) and orthosurgery (fractures of left ankle in 1985 + right ankle in 2005). Psychiatric History: Patient is an evasive and marginally cooperative historian. He endorses a history of psychiatric hospitalizations but he is unable to provide names of institutions. Recalls his diagnoses as MDD and PTSD. " I used to be on seroquel and gabapentin." No recent psychiatric OPD care. Mr Montano " has no idea about the last time " that he took prescribed psychotropic medications. Denies history of suicide attempts. Physical/Sexual Abuse/Trauma History: No information. Additional Comment: Toxicology not available for review. Mental Status Exam - Mental Status Exam Alert and Oriented to: Time (partial orientation to time), Place, Person Cognitive Function: Grossly Intact Patient Appearance: Unkempt, Disheveled Mood: Withdrawn Affect: Mood Congruent, Constricted Patient Behavior: Sedated (mildly sedated), Fatigued Speech Pattern: Delayed, Slurred Voice Loudness: Normal Thought Process: Disoriented (to time) Thought Disorder: Not Present Hallucinations: Denies Suicidal Ideation: Denies Homicidal Ideation: Denies Insight/Judgement: Poor Sleep: Well Appetite: Good Gait/Station: Other (not observed; patient is resting comnfortably in bed) Psychiatric Findings - Problem List ([place] 1, 2,3) (1) Alcohol dependence with uncomplicated withdrawal Status: Acute (2) Cocaine use disorder Status: Chronic (3) Nicotine dependence Status: Chronic - Initial Treatment Plan Initial Treatment Plan: Psychoeducation. Detoxification in progress. Observation.
[2020-03-03] MEDS: LORazepam 2 MG TABLET PO SCH ×2 (17:38→23:28)
[2020-03-03] MEDS: THIAMINE HCL 100 MG TABLET (FP) PO SCH (23:28)
[2020-03-03] MEDS: MELATONIN 5 MG TABLETS PO SCH (23:30)
[2020-03-04] MEDS: hydrOXYzine PAMOATE 25 MG CAPSULE (FP) PO SCH ×5 (05:23→22:23)
[2020-03-04] MEDS: LORazepam 2 MG TABLET PO SCH ×4 (05:23→22:22)
[2020-03-04 09:21] LABS: HEMATOCRIT 44.2 % (35.4-49); HEMOGLOBIN 14.6 GM/dL (11.7-16.9); MCH 30.1 pg (25.7-33.7); MEAN CELL VOLUME 91.3 fl (80-96); MEAN PLT VOLUME 10.1 fl (7.5-11.1); PLATELET COUNT 158 K/MM3 (134-434); RBC 4.84 M/mm3 (4.00-5.60); RDW 14.4 % (11.9-15.9); WHITE BLOOD COUNT 5.7 K/mm3 (4.0-10.0)
[2020-03-04 09:28] LABS: ALBUMIN 3.6 g/dl (3.4-5.0); BILIRUBIN,TOTAL 0.7 mg/dL (0.2-1); BLOOD UREA NITROGEN 6.7 mg/dL (7-18); CALCIUM 8.8 mg/dL (8.5-10.1); CREATININE 0.8 mg/dL (0.55-1.3); POTASSIUM 3.6 mmol/L (3.5-5.1); TOT PROT 6.4 g/dl (6.4-8.2)
[2020-03-04] MEDS: NICOTINE 7 MG/24 HOURS TOPICAL PATCH TD SCH (10:27)
[2020-03-04] MEDS: PRENATAL VITAMINS W/ FOLIC ACID TABLET (FP) PO SCH (10:27)
[2020-03-04] MEDS ORDERED: PNEUMOC 13-VAL CONJ-DIP CRM/PF 0.5 ML DISP.SYRIN IM ONE (12:00)
--- NOTE | 2020-03-04 12:19 | PN ---
[facility] CIWA - CIWA Score Nausea/Vomitin-No Nausea/No Vomiting Muscle Tremors: 2 Anxiety: 3 Agitation: 2 Paroxysmal Sweats: 1-Minimal Palms Moist Orientation: 0-Oriented Tacttile Disturbances: 0-None Auditory Disturbances: 0-None Visual Disturbances: 2-Mild Sensitivity Headache: 0-None Present CIWA-Ar Total Score: 10 S Progress Note (SOAP) Subjective: Complaints of anxiety, shakes, sweats and irritability. Objective: 03/04/20 12:17 Vital Signs 03/04/20 03/04/20 03/04/20 05:11 06:27 08:35 Temperature 97.8 F 97.3 F L Pulse Rate 59 L 82 Respiratory 20 18 16 Rate Blood Pressure 139/89 137/87 O2 Sat by Pulse 99 Oximetry (%) Laboratory Last Values WBC 5.7 K/mm3 (4.0-10.0) 03/04/20 07:35 RBC 4.84 M/mm3 (4.00-5.60) 03/04/20 07:35 Hgb 14.6 GM/dL (11.7-16.9) 03/04/20 07:35 Hct 44.2 % (35.4-49) 03/04/20 07:35 MCV 91.3 fl (80-96) 03/04/20 07:35 MCH 30.1 pg (25.7-33.7) 03/04/20 07:35 MCHC 33.0 g/dl (32.0-35.9) 03/04/20 07:35 RDW 14.4 % (11.9-15.9) 03/04/20 07:35 Plt Count 158 K/MM3 (134-434) D 03/04/20 07:35 MPV 10.1 fl (7.5-11.1) 03/04/20 07:35 Sodium 143 mmol/L (136-145) 03/04/20 07:35 Potassium 3.6 mmol/L (3.5-5.1) 03/04/20 07:35 Chloride 107 mmol/L (98-107) 03/04/20 07:35 Carbon Dioxide 28 mmol/L (21-32) 03/04/20 07:35 Anion Gap 7 MMOL/L (8-16) L 03/04/20 07:35 BUN 6.7 mg/dL (7-18) L 03/04/20 07:35 Creatinine 0.8 mg/dL (0.55-1.3) 03/04/20 07:35 Est GFR (CKD-EPI)AfAm 114.13 03/04/20 07:35 Est GFR (CKD-EPI)NonAf 98.47 03/04/20 07:35 Random Glucose 92 mg/dL (74-106) 03/04/20 07:35 Calcium 8.8 mg/dL (8.5-10.1) 03/04/20 07:35 Total Bilirubin 0.7 mg/dL (0.2-1) 03/04/20 07:35 AST 27 U/L (15-37) 03/04/20 07:35 ALT 23 U/L (13-61) 03/04/20 07:35 Alkaline Phosphatase 81 U/L (45-117) 03/04/20 07:35 Total Protein 6.4 g/dl (6.4-8.2) 03/04/20 07:35 Albumin 3.6 g/dl (3.4-5.0) 03/04/20 07:35 Syphilis Serology Non-reactive (NONREACTIVE) 03/04/20 07:35 HIV Ag/Ab Combo Qual Negative (NEGATIVE) 03/04/20 07:35 Labs reviewed, COVID 19 testing pending. Assessment: 03/04/20 12:18 Alert and oriented x3, in no acute respiratory distress Full ROM, skin warm to touch, ambulatory on unit without assistance. Mild withdrawal symptoms. Covid 19 testing pending. Plan: Continue detox protocol.
[2020-03-04] MEDS: TAMSULOSIN HCL 0.4 MG CAP PO SCH (17:25)
[2020-03-04] MEDS: ATORVASTATIN CA 80 MG TABLET (FP) PO SCH (22:22)
[2020-03-04] MEDS: GABAPENTIN 400 MG CAPSULE PO SCH (22:22)
[2020-03-04] MEDS: THIAMINE HCL 100 MG TABLET (FP) PO SCH (22:22)
[2020-03-04] MEDS: MELATONIN 5 MG TABLETS PO SCH (22:37)
[2020-03-05] MEDS: LORazepam 1 MG TABLET PO SCH ×4 (05:35→22:13)
[2020-03-05] MEDS: GABAPENTIN 400 MG CAPSULE PO SCH ×3 (05:35→22:13)
[2020-03-05] MEDS: hydrOXYzine PAMOATE 25 MG CAPSULE (FP) PO SCH ×5 (05:35→22:14)
[2020-03-05] MEDS: TAMSULOSIN HCL 0.4 MG CAP PO SCH (10:07)
[2020-03-05] MEDS: PRENATAL VITAMINS W/ FOLIC ACID TABLET (FP) PO SCH (10:07)
[2020-03-05] MEDS: amLODIPine BESYLATE 5 MG TABLET (FP) PO SCH (10:07)
[2020-03-05] MEDS: NICOTINE 7 MG/24 HOURS TOPICAL PATCH TD SCH (10:07)
--- NOTE | 2020-03-05 13:44 | PN ---
[facility] CIWA - CIWA Score Nausea/Vomitin-Mild Nausea/No Vomiting Muscle Tremors: 2 Anxiety: 2 Agitation: 2 Paroxysmal Sweats: No Perspiration Orientation: 0-Oriented Tacttile Disturbances: 1-Very Mild Itch/Numbness Auditory Disturbances: 0-None Visual Disturbances: 0-None Headache: 1-Very Mild CIWA-Ar Total Score: 9 S Progress Note (SOAP) Subjective: alert,irritable,anxious,interrupted sleep,pain in the body Objective: 03/05/20 13:42 Vital Signs Temperature 97.3 F L 03/05/20 08:43 Pulse Rate 79 03/05/20 08:43 Respiratory Rate 18 03/05/20 08:43 Blood Pressure 145/91 03/05/20 08:43 O2 Sat by Pulse Oximetry (%) 98 03/05/20 05:25 03/05/20 13:42 Laboratory Last Values WBC 5.7 K/mm3 (4.0-10.0) 03/04/20 07:35 RBC 4.84 M/mm3 (4.00-5.60) 03/04/20 07:35 Hgb 14.6 GM/dL (11.7-16.9) 03/04/20 07:35 Hct 44.2 % (35.4-49) 03/04/20 07:35 MCV 91.3 fl (80-96) 03/04/20 07:35 MCH 30.1 pg (25.7-33.7) 03/04/20 07:35 MCHC 33.0 g/dl (32.0-35.9) 03/04/20 07:35 RDW 14.4 % (11.9-15.9) 03/04/20 07:35 Plt Count 158 K/MM3 (134-434) D 03/04/20 07:35 MPV 10.1 fl (7.5-11.1) 03/04/20 07:35 Sodium 143 mmol/L (136-145) 03/04/20 07:35 Potassium 3.6 mmol/L (3.5-5.1) 03/04/20 07:35 Chloride 107 mmol/L (98-107) 03/04/20 07:35 Carbon Dioxide 28 mmol/L (21-32) 03/04/20 07:35 Anion Gap 7 MMOL/L (8-16) L 03/04/20 07:35 BUN 6.7 mg/dL (7-18) L 03/04/20 07:35 Creatinine 0.8 mg/dL (0.55-1.3) 03/04/20 07:35 Est GFR (CKD-EPI)AfAm 114.13 03/04/20 07:35 Est GFR (CKD-EPI)NonAf 98.47 03/04/20 07:35 Random Glucose 92 mg/dL (74-106) 03/04/20 07:35 Calcium 8.8 mg/dL (8.5-10.1) 03/04/20 07:35 Total Bilirubin 0.7 mg/dL (0.2-1) 03/04/20 07:35 AST 27 U/L (15-37) 03/04/20 07:35 ALT 23 U/L (13-61) 03/04/20 07:35 Alkaline Phosphatase 81 U/L (45-117) 03/04/20 07:35 Total Protein 6.4 g/dl (6.4-8.2) 03/04/20 07:35 Albumin 3.6 g/dl (3.4-5.0) 03/04/20 07:35 Syphilis Serology Non-reactive (NONREACTIVE) 03/04/20 07:35 HIV Ag/Ab Combo Qual Negative (NEGATIVE) 03/04/20 07:35 Assessment: 03/05/20 13:43 withdrawal symptom Plan: continue detox ativan regimen
[2020-03-05] MEDS: THIAMINE HCL 100 MG TABLET (FP) PO SCH (22:13)
[2020-03-05] MEDS: ATORVASTATIN CA 80 MG TABLET (FP) PO SCH (22:14)
[2020-03-05] MEDS: MELATONIN 5 MG TABLETS PO SCH (22:16)
[2020-03-05 23:37] LABS: URINE APPEARANCE CLEAR; URINE BILIRUBIN NEGATIVE (NEGATIVE); URINE COLOR YELLOW; URINE GLUCOSE (UA) NEGATIVE (NEGATIVE); URINE KETONE NEGATIVE (NEGATIVE); URINE LEUK ESTERASE NEGATIVE (NEGATIVE); URINE NITRITE NEGATIVE (NEGATIVE); URINE PROTEIN NEGATIVE (NEGATIVE)
[2020-03-06] MEDS ORDERED: LORazepam 0.5 MG TABLET PO PRN
[2020-03-06] MEDS: GABAPENTIN 400 MG CAPSULE PO SCH ×3 (05:37→22:09)
[2020-03-06] MEDS: hydrOXYzine PAMOATE 25 MG CAPSULE (FP) PO SCH ×5 (05:37→22:12)
[2020-03-06] MEDS: LORazepam 0.5 MG TABLET PO SCH ×4 (05:37→22:09)
[2020-03-06] MEDS: NICOTINE 7 MG/24 HOURS TOPICAL PATCH TD SCH (09:20)
[2020-03-06] MEDS: amLODIPine BESYLATE 5 MG TABLET (FP) PO SCH (09:20)
[2020-03-06] MEDS: TAMSULOSIN HCL 0.4 MG CAP PO SCH (09:20)
[2020-03-06] MEDS: PRENATAL VITAMINS W/ FOLIC ACID TABLET (FP) PO SCH (09:20)
--- NOTE | 2020-03-06 10:50 | PN ---
[facility] CIWA - CIWA Score Nausea/Vomitin-Mild Nausea/No Vomiting Muscle Tremors: 1-None Visible, but [place] Anxiety: 2 Agitation: 2 Paroxysmal Sweats: No Perspiration Orientation: 0-Oriented Tacttile Disturbances: 1-Very Mild Itch/Numbness Auditory Disturbances: 0-None Visual Disturbances: 0-None Headache: 1-Very Mild CIWA-Ar Total Score: 8 [facility] Progress Note (SOAP) Subjective: alert,irritable,anxious,interrupted sleep,pain in the body Objective: 03/06/20 10:48 Vital Signs Temperature 96.8 F L 03/06/20 06:26 Pulse Rate 64 03/06/20 06:26 Respiratory Rate 18 03/06/20 06:26 Blood Pressure 142/87 03/06/20 06:26 O2 Sat by Pulse Oximetry (%) 98 03/06/20 06:26 Assessment: 03/06/20 10:49 withdrawal symptom Plan: continue detox ativan regimen,psychiatric reevaluation for seroquel,discharge in am
--- NOTE | 2020-03-06 11:46 | PN ---
[facility] Progress Note Note: Patent requests to resume Seroquel and Elavil. He was seen by Dr Sherman on 03/03/20 and no medications were ordered. [facility] was [phone]. According to pharmacist, scripts for Seroquel 200 mg/bid was filled on 02/09/20, Elavil 75 mg/hs was on 02/15/20 and Gabapentin 400 mg/tid on 02/29/20. Patient told senior writer that he has been taking his medications as prescribed till the day of admission. Gabapentin was already ordered CLINICAL ORTHOPTIST Christy Rosenbaum on 03/04/20. Seroquel and Elavil will be ordered as prescribed for patient
[2020-03-06] MEDS: QUEtiapine FUMARATE 200 MG TABLET PO SCH ×2 (13:03→22:09)
[2020-03-06] MEDS ORDERED: AMITRIPTYLINE HCL 25 MG TABLET PO SCH (22:00)
[2020-03-06] MEDS: THIAMINE HCL 100 MG TABLET (FP) PO SCH (22:09)
[2020-03-06] MEDS: ATORVASTATIN CA 80 MG TABLET (FP) PO SCH (22:09)
[2020-03-06] MEDS: MELATONIN 5 MG TABLETS PO SCH (22:12)
[2020-03-07] MEDS ORDERED: LORazepam 0.5 MG TABLET PO ONE (05:00)
[2020-03-07] MEDS: hydrOXYzine PAMOATE 25 MG CAPSULE (FP) PO SCH ×2 (05:24→10:23)
[2020-03-07] MEDS: GABAPENTIN 400 MG CAPSULE PO SCH (05:24)
--- NOTE | 2020-03-07 09:04 | PN ---
[facility] CIWA - CIWA Score Nausea/Vomitin-No Nausea/No Vomiting Muscle Tremors: None Anxiety: 1-Mildly Anxious Agitation: 0-Normal Activity Paroxysmal Sweats: No Perspiration Orientation: 0-Oriented Tacttile Disturbances: 0-None Auditory Disturbances: 0-None Visual Disturbances: 0-None Headache: 0-None Present CIWA-Ar Total Score: 1 S Progress Note (SOAP) Subjective: alert,no complaint Objective: 03/07/20 09:02 Vital Signs Temperature 97.3 F L 03/07/20 05:15 Pulse Rate 81 03/07/20 05:15 Respiratory Rate 18 03/07/20 05:15 Blood Pressure 118/75 03/07/20 05:15 O2 Sat by Pulse Oximetry (%) 97 03/07/20 05:15 Assessment: 03/07/20 09:02 detox completed,no withdrawal symptom Plan: stable for discharge today,follow up with after care program as arrangement revelation
--- NOTE | 2020-03-07 09:11 | DS ---
[facility] Detox Discharge Summary Admission Date: 03/03/20 Discharge Date: 03/07/20 - History Present History: Alcohol Dependence, Cocaine Dependence Additional Comments: alert,oriented x 3 ambulation on the unit lung clear on auscultation bilaterally abdomen soft,no pain,no tenderness stable for discharge total time spending on discharge 35 minutes follow up with after care program as arrangement revelation Pertinent Past History: hepatitis c gerd bipolar disorder depression personality disorder hypertension hypercholesterolemia nicotine dependence bph - Physical Exam Results Vital Signs: Vital Signs Temperature 97.3 F L 03/07/20 05:15 Pulse Rate 81 03/07/20 05:15 Respiratory Rate 18 03/07/20 05:15 Blood Pressure 118/75 03/07/20 05:15 O2 Sat by Pulse Oximetry (%) 97 03/07/20 05:15 Pertinent Admission Physical Exam Findings: withdrawal signs and symptom Laboratory Last Values WBC 5.7 K/mm3 (4.0-10.0) 03/04/20 07:35 RBC 4.84 M/mm3 (4.00-5.60) 03/04/20 07:35 Hgb 14.6 GM/dL (11.7-16.9) 03/04/20 07:35 Hct 44.2 % (35.4-49) 03/04/20 07:35 MCV 91.3 fl (80-96) 03/04/20 07:35 MCH 30.1 pg (25.7-33.7) 03/04/20 07:35 MCHC 33.0 g/dl (32.0-35.9) 03/04/20 07:35 RDW 14.4 % (11.9-15.9) 03/04/20 07:35 Plt Count 158 K/MM3 (134-434) D 03/04/20 07:35 MPV 10.1 fl (7.5-11.1) 03/04/20 07:35 Sodium 143 mmol/L (136-145) 03/04/20 07:35 Potassium 3.6 mmol/L (3.5-5.1) 03/04/20 07:35 Chloride 107 mmol/L (98-107) 03/04/20 07:35 Carbon Dioxide 28 mmol/L (21-32) 03/04/20 07:35 Anion Gap 7 MMOL/L (8-16) L 03/04/20 07:35 BUN 6.7 mg/dL (7-18) L 03/04/20 07:35 Creatinine 0.8 mg/dL (0.55-1.3) 03/04/20 07:35 Est GFR (CKD-EPI)AfAm 114.13 03/04/20 07:35 Est GFR (CKD-EPI)NonAf 98.47 03/04/20 07:35 Random Glucose 92 mg/dL (74-106) 03/04/20 07:35 Calcium 8.8 mg/dL (8.5-10.1) 03/04/20 07:35 Total Bilirubin 0.7 mg/dL (0.2-1) 03/04/20 07:35 AST 27 U/L (15-37) 03/04/20 07:35 ALT 23 U/L (13-61) 03/04/20 07:35 Alkaline Phosphatase 81 U/L (45-117) 03/04/20 07:35 Total Protein 6.4 g/dl (6.4-8.2) 03/04/20 07:35 Albumin 3.6 g/dl (3.4-5.0) 03/04/20 07:35 Urine Color Yellow 03/05/20 22:15 Urine Appearance Clear 03/05/20 22:15 Urine pH 6.0 (5.0-8.0) 03/05/20 22:15 Ur Specific [place] 1.019 (1.010-1.035) 03/05/20 22:15 Urine Protein Negative (NEGATIVE) 03/05/20 22:15 Urine Glucose (UA) Negative (NEGATIVE) 03/05/20 22:15 Urine Ketones Negative (NEGATIVE) 03/05/20 22:15 Urine Blood Negative (NEGATIVE) 03/05/20 22:15 Urine Nitrite Negative (NEGATIVE) 03/05/20 22:15 Urine Bilirubin Negative (NEGATIVE) 03/05/20 22:15 Urine Urobilinogen 1.0 mg/dL (0.2-1.0) 03/05/20 22:15 Ur Leukocyte Esterase Negative (NEGATIVE) 03/05/20 22:15 Syphilis Serology Non-reactive (NONREACTIVE) 03/04/20 07:35 COVID-19 (CHENG) Not detected (Not Detected) 03/03/20 13:30 HIV Ag/Ab Combo Qual Negative (NEGATIVE) 03/04/20 07:35 Vital Signs Temperature 97.3 F L 03/07/20 05:15 Pulse Rate 81 03/07/20 05:15 Respiratory Rate 18 03/07/20 05:15 Blood Pressure 118/75 03/07/20 05:15 O2 Sat by Pulse Oximetry (%) 97 03/07/20 05:15 - Treatment Hospital Course: Detox Protocol Followed, Detoxed Safely, Responded well, Discharged Condition Good, Rehab Referral Accepted - Medication Discharge Medications: Ambulatory Orders Amlodipine Besylate [Norvasc -] 5 mg PO DAILY 03/03/20 Atorvastatin Ca [Lipitor] 80 mg PO HS 03/03/20 Gabapentin [Neurontin -] 400 mg PO Q8H 03/03/20 Quetiapine Fumarate [Quetiapine Fumarate ER] 200 mg PO BID 03/03/20 Tamsulosin HCl [Flomax] 0.4 mg PO DAILY 03/03/20 - Diagnosis (1) Alcohol dependence with uncomplicated withdrawal Current Visit: Yes Status: Acute (2) GERD (gastroesophageal reflux disease) Current Visit: No Status: Acute Qualifiers: Esophagitis presence: without esophagitis Qualified Code(s): K21.9 - Gastro-esophageal reflux disease without esophagitis (3) Hepatitis C Current Visit: No Status: Acute (4) Insomnia Current Visit: No Status: Acute (5) Nicotine dependence unspecified, with withdrawal Current Visit: No Status: Acute Qualifiers: Nicotine product type: cigarettes Qualified Code(s): F17.213 - Nicotine dependence, cigarettes, with withdrawal (6) Cocaine abuse Current Visit: Yes Status: Acute (7) Bipolar disorder Current Visit: Yes Status: Acute (8) Depression Current Visit: Yes Status: Acute (9) Personality disorder Current Visit: Yes Status: Acute (10) Hypertension Current Visit: Yes Status: Acute (11) Hypercholesterolemia Current Visit: Yes Status: Acute (12) Nicotine dependence Current Visit: Yes Status: Acute (13) BPH (benign prostatic hyperplasia) Current Visit: Yes Status: Acute - AMA Did Patient Leave Against Medical Advice: No
[2020-03-07 09:43] VITALS: BP 110/84; PULSE 92; TEMP 98.8
[2020-03-07] MEDS: TAMSULOSIN HCL 0.4 MG CAP PO SCH (10:23)
[2020-03-07] MEDS: amLODIPine BESYLATE 5 MG TABLET (FP) PO SCH (10:23)
[2020-03-07] MEDS: NICOTINE 7 MG/24 HOURS TOPICAL PATCH TD SCH (10:23)
[2020-03-07] MEDS: PRENATAL VITAMINS W/ FOLIC ACID TABLET (FP) PO SCH (10:23)
[2020-03-07] MEDS: QUEtiapine FUMARATE 200 MG TABLET PO SCH (10:23)
== END 2020-03-07 11:17 | disposition other institution (70) | DRG 774 ==
LOC: YASAS 10:26 → Y6N 13:11
PROVIDERS: ADMIT Allergy & Immunology; ATTEND Allergy & Immunology
PROC: HZ2ZZZZ Detoxification Services for Substance Abuse Treatment (ICD-10-PCS; principal; 2020-03-03)
DX: F10.230 Alcohol dependence with withdrawal, uncomplicated (principal); F14.10 Cocaine abuse, uncomplicated; F17.210 Nicotine dependence, cigarettes, uncomplicated; F31.9 Bipolar disorder, unspecified; F60.9 Personality disorder, unspecified; I10 Essential (primary) hypertension; K21.9 Gastro-esophageal reflux disease without esophagitis; E78.00 Pure hypercholesterolemia, unspecified; N40.0 Benign prostatic hyperplasia without lower urinary tract symptoms; G47.00 Insomnia, unspecified; Z86.19 Personal history of other infectious and parasitic diseases; Z56.0 Unemployment, unspecified; Z88.8 Allergy status to other drugs, medicaments and biological substances
CPT/HCPCS: 36415; 80053; 81003; 85027; 86780; 87389; U0003

== ENCOUNTER 2020-03-07 09:58 | Inpatient (IN) | payer OTHER ==
--- NOTE | 2020-03-07 10:24 | HP ---
[facility] Rehab Assess/Revision - Admission History Ad[facility] to [facility]hab [facility] - Findings Detox History & Physical reviewed: Yes Concur with findings: Yes Inpatient Rehab Admission - Rehab Decision to Admit Inpatient rehab admission?: Yes - Initial Determination Are CD services needed?: Yes Free of communicable disease: Yes Not in need of hospitalization: Yes - Rehab Admission Criteria Previous failed treatment: Yes Poor recovery environment: Yes Comorbidities: Yes Lacks judgement: Yes Patient is meeting Inpatient Rehab admission criteria:: Yes
[2020-03-07] MEDS ORDERED: MAGNESIUM CITRATE 300 ML BOTTLE PO PRN (12:32)
[2020-03-07] MEDS ORDERED: guaiFENesin 200 MG/10 ML 10 ML UNIT-DOSE CUPS PO PRN (12:32)
[2020-03-07] MEDS ORDERED: MAGNESIUM HYDROX 2400MG/30ML ORAL SUSPENSION 30 ML CUP PO PRN (12:32)
[2020-03-07] MEDS ORDERED: LOPERAMIDE HCL 2 MG CAPSULE PO PRN (12:32)
[2020-03-07] MEDS ORDERED: hydrOXYzine PAMOATE 25 MG CAPSULE (FP) PO PRN (12:32)
[2020-03-07] MEDS ORDERED: P-EPHED 60MG/TRIPROLIDI 2.5MG TABLET PO PRN (12:32)
[2020-03-07] MEDS ORDERED: ACETAMINOPHEN 325 MG TABLET (FP) PO PRN (12:32)
[2020-03-07] MEDS ORDERED: NICOTINE POLACRILEX 2 MG GUM BUC PRN (12:32)
[2020-03-07] MEDS ORDERED: IBUPROFEN 400 MG TABLET (FP) PO PRN (12:32)
[2020-03-07] MEDS ORDERED: MENTHOL/PHENOL 1 EACH UD MM PRN (12:32)
--- NOTE | 2020-03-07 13:17 | CONSULT ---
[facility] Psychiatric Consult - Data Date of interview: 03/07/20 Admission source: 6N Identifying data: Mr Montano is a 59 years old single Black male, father of a 35 years old son, unemployed receiving food stamps, domiciled admitted from detox on 03/07/20 for inpatient rehabilitation for alcohol and cocaine Substance Abuse History: Reports history of alcohol, crack cocaine use. Refer to addiction counselor's summary for further information Medical History: Significant for GERD, hypertension, dyslipidemia, benign prostatic hyperplasia, obesity, history of treatment for hepatitis C in 2005 and orthosurgery for fractures of left ankle in 1985 and right ankle in 2005). Smokes 10 cigarettes daily Psychiatric History: Patient is known for 2 previous admissions to this facility. He reports that he has been seeing psychiatrist since the for MDD and PTSD. Reports that he has been receivig outpatient psychiatric treatment at [facility] since 2018. Reports because of Coronavirus pandemic, he has not seen his psychiatrist in a while. However, he has been getting his medications through the [facility] in the [place]. Reports that he is currently on Seroquel 200 mg/bid, Elavil 75 mg/hs and Gabapentin 400 mg/tid. He was seen by video games storywriter recently on 03/03/20 while in detox and his medications were confirmed by [employer] [phone]. Reports 3 previous psychiatic hos pitalizations in a facility in [place], [place] in 2011, [facility] in 2013 and [facility] in 2014. Denies previous suicidal attempt Physical/Sexual Abuse/Trauma History: Denies history of abuse as a child or DV relationship as an adult Mental Status Exam - Mental Status Exam Alert and Oriented to: Time, Place, Person Cognitive Function: Fair Patient Appearance: Well Groomed Mood: Anxious Affect: Appropriate Patient Behavior: Cooperative Hallucinations: Denies Suicidal Ideation: Denies Homicidal Ideation: Denies Appetite: Good Muscle strength/Tone: Normal Gait/Station: Normal Psychiatric Findings - Problem List ([place] 1, 2,3) (1) MDD (major depressive disorder), recurrent episode, moderate Current Visit: Yes Status: Chronic (2) PTSD (post-traumatic stress disorder) Current Visit: Yes Status: Chronic (3) Substance-induced anxiety disorder Current Visit: Yes Status: Acute (4) Substance-induced sleep disorder Current Visit: Yes Status: Acute (5) Alcohol dependence Current Visit: Yes Status: Acute (6) Cocaine dependence Current Visit: Yes Status: Acute (7) Nicotine dependence Current Visit: No Status: Chronic (8) Hypertension Current Visit: No Status: Chronic (9) Hypercholesterolemia Current Visit: No Status: Chronic (10) GERD (gastroesophageal reflux disease) Current Visit: No Status: Chronic Qualifiers: Esophagitis presence: without esophagitis Qualified Code(s): K21.9 - Gastro-esophageal reflux disease without esophagitis (11) BPH (benign prostatic hyperplasia) Current Visit: No Status: Chronic (12) Hepatitis C Current Visit: No Status: Resolved (13) Obesity Current Visit: No Status: Chronic - Initial Treatment Plan Initial Treatment Plan: 1) Continue Seroquel 200 mg po BID, Elavil 75 mg po HS and Gabapentin 400 mg po TID. 2) Continue inpatient rehabilitation
[2020-03-07] MEDS: GABAPENTIN 400 MG CAPSULE PO SCH ×2 (14:49→21:53)
[2020-03-07] MEDS ORDERED: PT OWN MED DRAWER 7, Y5N ONE ×2 (15:32→15:55)
[2020-03-07] MEDS ORDERED: ATORVASTATIN CA 40 MG TABLET (FP) ONE (20:26)
[2020-03-07] MEDS: MELATONIN 5 MG TABLETS PO SCH (21:53)
[2020-03-07] MEDS: ATORVASTATIN CA 80 MG TABLET (FP) PO SCH (21:54)
[2020-03-07] MEDS: THIAMINE HCL 100 MG TABLET (FP) PO SCH (21:55)
[2020-03-07] MEDS: QUEtiapine FUMARATE 200 MG TABLET PO SCH (21:55)
[2020-03-07] MEDS: AMITRIPTYLINE HCL 25 MG TABLET PO SCH (21:55)
[2020-03-08] MEDS: GABAPENTIN 400 MG CAPSULE PO SCH ×3 (06:22→21:28)
[2020-03-08] MEDS: TAMSULOSIN HCL 0.4 MG CAP PO SCH (09:55)
[2020-03-08] MEDS: amLODIPine BESYLATE 5 MG TABLET (FP) PO SCH (09:56)
[2020-03-08] MEDS: QUEtiapine FUMARATE 200 MG TABLET PO SCH ×2 (09:56→21:28)
[2020-03-08] MEDS: NICOTINE 7 MG/24 HOURS TOPICAL PATCH TD SCH (09:56)
[2020-03-08] MEDS: PRENATAL VITAMINS W/ FOLIC ACID TABLET (FP) PO SCH (09:56)
--- NOTE | 2020-03-08 14:08 | PN ---
[facility] Progress Note Note: Laboratory Last Values Ammonia 54.50 umol/L (11-32) H 03/08/20 09:50 Ammonia level 54.5; Lactulose started; patient asymptomatic.
[2020-03-08] MEDS: LACTULOSE 20 GM/30 ML UDC (FOR ORAL USE ONLY) PO SCH ×2 (14:13→21:28)
[2020-03-08] MEDS ORDERED: PT OWN MED DRAWER 7, Y5N ONE (15:36)
--- NOTE | 2020-03-08 15:38 | PN ---
Psychiatric Progress Note Vital Signs: Vital Signs Period Temp Pulse Resp BP Sys/Montesinos Pulse Ox Last 24 Hr 97.5 F 84-94 18 138-142/68-87 96-97 Date of Session: 03/08/20 Chief Complaint:: " I feel fine." HPI: Patient admitted to for treatment alcohol and cocaine dependence. Consultation ordered for assessment of Mental Status. ROS: Patient is ambulatory, alert +oriented X3. Current Medications: Active Medications Generic Name Dose Route Start Last Admin Trade Name Freq PRN Reason Stop Dose Admin Al Hydroxide/Mg Hydroxide 30 ml 03/07/20 12:32 Mylanta Oral Suspension - PO Q6H PRN DYSPEPSIA Amitriptyline HCl 75 mg 03/07/20 22:00 03/07/20 21:55 Elavil - PO 75 mg HS TERRIE Administration Amlodipine Besylate 5 mg 03/08/20 10:00 03/08/20 09:56 Norvasc - PO 5 mg DAILY TERRIE Administration Atorvastatin Calcium 80 mg 03/07/20 22:00 03/07/20 21:54 Lipitor - PO 80 mg HS TERRIE Administration Eucalyptus/Menthol/Phenol/Sorbitol 1 each 03/07/20 12:32 Cepastat Lozenge - MM Q4H PRN SORE THROAT Gabapentin 400 mg 03/07/20 14:00 03/08/20 13:17 Neurontin - PO 400 mg TID TERRIE Administration Guaifenesin 10 ml 03/07/20 12:32 Robitussin - PO Q6H PRN COUGH Hydroxyzine Pamoate 25 mg 03/07/20 12:32 Vistaril - PO Q4HWA PRN ANXIETY Ibuprofen 400 mg 03/07/20 12:32 Motrin - PO Q6H PRN Pain Level 4-6 Lactulose 20 gm 03/08/20 14:00 03/08/20 14:13 Cephulac (Oral Use) PO 20 gm TID TERRIE Administration Loperamide HCl 4 mg 03/07/20 12:32 Imodium - PO Q6H PRN DIARRHEA Magnesium Citrate 300 ml 03/07/20 12:32 Citroma - PO Q48H PRN CONSTIPATION Magnesium Hydroxide 30 ml 03/07/20 12:32 Milk Of Magnesia - PO DAILY PRN CONSTIPATION Melatonin 5 mg 03/07/20 22:00 03/07/20 21:53 Melatonin PO 5 mg HS TERRIE Administration Nicotine 7 mg 03/08/20 10:00 03/08/20 09:56 Nicoderm Patch - TD 7 mg DAILY TERRIE Administration Nicotine Polacrilex 2 mg 03/07/20 12:32 Nicorette Gum - BUC Q2H PRN NICOTINE REPLACEMENT RX Multivit/Folic Acid/Iron 1 tab 03/08/20 10:00 03/08/20 09:56 Vitamins (Sjr) - PO 1 tab DAILY TERRIE Administration Pseudoephedrine/Triprolidine 1 combo 03/07/20 12:32 Actifed - PO TID PRN NASAL CONGESTION Quetiapine Fumarate 200 mg 03/07/20 22:00 03/08/20 09:56 Seroquel - PO 200 mg BID TERRIE Administration Tamsulosin HCl 0.4 mg 03/08/20 10:00 03/08/20 09:55 Flomax - PO 0.4 mg DAILY TERRIE Administration Thiamine HCl 100 mg 03/07/20 22:00 03/07/20 21:55 Vitamin B1 - PO 100 mg HS TERRIE Administration Medication(s) Change(s): Yes. Will d/c vistaril 25mg q4h Current Side Effect: No Lab tests ordered: No Lab tests reviewed: Yes Provider note:: Consultation ordered due to ammonia level : 54.5. Patient is ambulatory, alert +oriented X3. No signs of confusion or disorientation. Patient is asymptomatic. There is no need to discontinue or reduce psychotropic medications (seroquel 200mg BID +gabapentin 400mg TID + Elavil 75mg HS). Patient's ammonia level is currently being treated with lactulose 20mg TID. Will d/c vistaril 25mg q4h as there is no clinical justification to continue current medication. Patient in agreement with plan. Total face to face time:: 25 Mental Status Exam - Mental Status Exam Alert and Oriented to: Time, Place, Person Cognitive Function: Good Patient Appearance: Well Groomed Mood: Hopeful Affect: Appropriate Patient Behavior: Appropriate, Cooperative Speech Pattern: Appropriate Voice Loudness: Normal Thought Process: Intact, Goal Oriented Thought Disorder: Not Present Hallucinations: Denies Suicidal Ideation: Denies Homicidal Ideation: Denies Insight/Judgement: Poor Sleep: Fair Appetite: Fair Muscle strength/Tone: Normal Gait/Station: Normal Psychiatric Treatment Plan - Problem List (1) Alcohol dependence Current Visit: Yes (2) Cocaine dependence Current Visit: Yes (3) Substance-induced anxiety disorder Current Visit: Yes (4) Substance-induced sleep disorder Current Visit: Yes (5) MDD (major depressive disorder), recurrent episode, moderate Current Visit: Yes (6) PTSD (post-traumatic stress disorder) Current Visit: Yes
[2020-03-08] MEDS: MAG HYDROX/AL HYDROX/SIMETH 30 ML UNIT-DOSE CUP PO PRN (18:27)
[2020-03-08] MEDS ORDERED: ATORVASTATIN CA 40 MG TABLET (FP) ONE (20:17)
[2020-03-08] MEDS: ATORVASTATIN CA 80 MG TABLET (FP) PO SCH (21:28)
[2020-03-08] MEDS: THIAMINE HCL 100 MG TABLET (FP) PO SCH (21:28)
[2020-03-08] MEDS: AMITRIPTYLINE HCL 25 MG TABLET PO SCH (21:28)
[2020-03-08] MEDS: MELATONIN 5 MG TABLETS PO SCH (21:29)
[2020-03-09] MEDS: GABAPENTIN 400 MG CAPSULE PO SCH ×3 (06:08→21:54)
[2020-03-09] MEDS: LACTULOSE 20 GM/30 ML UDC (FOR ORAL USE ONLY) PO SCH ×3 (06:08→21:54)
[2020-03-09] MEDS: amLODIPine BESYLATE 5 MG TABLET (FP) PO SCH (09:46)
[2020-03-09] MEDS: PRENATAL VITAMINS W/ FOLIC ACID TABLET (FP) PO SCH (09:46)
[2020-03-09] MEDS: QUEtiapine FUMARATE 200 MG TABLET PO SCH ×2 (09:46→21:54)
[2020-03-09] MEDS: NICOTINE 7 MG/24 HOURS TOPICAL PATCH TD SCH (09:47)
[2020-03-09] MEDS: TAMSULOSIN HCL 0.4 MG CAP PO SCH (09:47)
[2020-03-09] MEDS: MAG HYDROX/AL HYDROX/SIMETH 30 ML UNIT-DOSE CUP PO PRN (15:52)
[2020-03-09] MEDS ORDERED: ATORVASTATIN CA 40 MG TABLET (FP) ONE (20:28)
[2020-03-09] MEDS: AMITRIPTYLINE HCL 25 MG TABLET PO SCH (21:53)
[2020-03-09] MEDS: THIAMINE HCL 100 MG TABLET (FP) PO SCH (21:53)
[2020-03-09] MEDS: MELATONIN 5 MG TABLETS PO SCH (21:54)
[2020-03-09] MEDS: ATORVASTATIN CA 80 MG TABLET (FP) PO SCH (21:55)
[2020-03-10] MEDS: LACTULOSE 20 GM/30 ML UDC (FOR ORAL USE ONLY) PO SCH ×3 (06:23→22:02)
[2020-03-10] MEDS: GABAPENTIN 400 MG CAPSULE PO SCH ×3 (06:23→22:02)
[2020-03-10] MEDS ORDERED: PT OWN MED DRAWER 7, Y5N ONE (08:30)
[2020-03-10] MEDS: QUEtiapine FUMARATE 200 MG TABLET PO SCH ×2 (09:50→22:02)
[2020-03-10] MEDS: amLODIPine BESYLATE 5 MG TABLET (FP) PO SCH (09:50)
[2020-03-10] MEDS: TAMSULOSIN HCL 0.4 MG CAP PO SCH (09:50)
[2020-03-10] MEDS: NICOTINE 7 MG/24 HOURS TOPICAL PATCH TD SCH (09:50)
[2020-03-10] MEDS: PRENATAL VITAMINS W/ FOLIC ACID TABLET (FP) PO SCH (09:51)
[2020-03-10] MEDS: MAG HYDROX/AL HYDROX/SIMETH 30 ML UNIT-DOSE CUP PO PRN ×2 (14:44→22:05)
[2020-03-10] MEDS ORDERED: ATORVASTATIN CA 40 MG TABLET (FP) ONE (20:49)
[2020-03-10] MEDS: AMITRIPTYLINE HCL 25 MG TABLET PO SCH (22:02)
[2020-03-10] MEDS: MELATONIN 5 MG TABLETS PO SCH (22:03)
[2020-03-10] MEDS: ATORVASTATIN CA 80 MG TABLET (FP) PO SCH (22:03)
[2020-03-10] MEDS: THIAMINE HCL 100 MG TABLET (FP) PO SCH (22:05)
[2020-03-11] MEDS: LACTULOSE 20 GM/30 ML UDC (FOR ORAL USE ONLY) PO SCH ×3 (06:10→21:36)
[2020-03-11] MEDS: GABAPENTIN 400 MG CAPSULE PO SCH ×3 (06:11→21:38)
[2020-03-11] MEDS ORDERED: MASKS NR ONE (06:48)
[2020-03-11] MEDS ORDERED: PT OWN MED DRAWER 7, Y5N ONE ×9 (09:40→21:43)
[2020-03-11] MEDS: QUEtiapine FUMARATE 200 MG TABLET PO SCH ×2 (10:10→21:38)
[2020-03-11] MEDS: TAMSULOSIN HCL 0.4 MG CAP PO SCH (10:10)
[2020-03-11] MEDS: PRENATAL VITAMINS W/ FOLIC ACID TABLET (FP) PO SCH (10:10)
[2020-03-11] MEDS: NICOTINE 7 MG/24 HOURS TOPICAL PATCH TD SCH (10:10)
[2020-03-11] MEDS: amLODIPine BESYLATE 5 MG TABLET (FP) PO SCH (10:10)
[2020-03-11] MEDS ORDERED: ATORVASTATIN CA 20 MG TABLET (FP) ONE (18:44)
[2020-03-11] MEDS: AMITRIPTYLINE HCL 25 MG TABLET PO SCH (21:36)
[2020-03-11] MEDS: ATORVASTATIN CA 80 MG TABLET (FP) PO SCH (21:37)
[2020-03-11] MEDS: MELATONIN 5 MG TABLETS PO SCH (21:37)
[2020-03-11] MEDS: THIAMINE HCL 100 MG TABLET (FP) PO SCH (21:38)
[2020-03-12] MEDS: LACTULOSE 20 GM/30 ML UDC (FOR ORAL USE ONLY) PO SCH ×3 (06:16→21:58)
[2020-03-12] MEDS: GABAPENTIN 400 MG CAPSULE PO SCH ×3 (06:16→21:58)
[2020-03-12] MEDS: amLODIPine BESYLATE 5 MG TABLET (FP) PO SCH (09:49)
[2020-03-12] MEDS: PRENATAL VITAMINS W/ FOLIC ACID TABLET (FP) PO SCH (09:49)
[2020-03-12] MEDS: NICOTINE 7 MG/24 HOURS TOPICAL PATCH TD SCH (09:49)
[2020-03-12] MEDS: TAMSULOSIN HCL 0.4 MG CAP PO SCH (09:49)
[2020-03-12] MEDS: QUEtiapine FUMARATE 200 MG TABLET PO SCH ×2 (09:49→21:59)
[2020-03-12] MEDS: MAG HYDROX/AL HYDROX/SIMETH 30 ML UNIT-DOSE CUP PO PRN (14:30)
--- NOTE | 2020-03-12 14:41 | PN ---
[facility] Progress Note Note: Laboratory Tests 03/08/20 03/12/20 09:50 08:14 Ammonia 54.50 H 42.80 H Vital Signs - 24 hr 03/11/20 03/12/20 20:36 06:15 Temperature 97.8 F Pulse Rate 85 Respiratory 18 Rate Blood Pressure 117/74 O2 Sat by Pulse 96 96 Oximetry (%) alert o x 3 nad Ammonia grossly decreased cont lactulose monitor ammonia level
[2020-03-12] MEDS ORDERED: ATORVASTATIN CA 40 MG TABLET (FP) ONE (20:11)
[2020-03-12] MEDS: AMITRIPTYLINE HCL 25 MG TABLET PO SCH (21:58)
[2020-03-12] MEDS: THIAMINE HCL 100 MG TABLET (FP) PO SCH (21:58)
[2020-03-12] MEDS: MELATONIN 5 MG TABLETS PO SCH (21:59)
[2020-03-12] MEDS: ATORVASTATIN CA 80 MG TABLET (FP) PO SCH (22:00)
[2020-03-12] MEDS ORDERED: PT OWN MED DRAWER 7, Y5N ONE (22:01)
[2020-03-13] MEDS: GABAPENTIN 400 MG CAPSULE PO SCH ×3 (06:16→21:17)
[2020-03-13] MEDS: LACTULOSE 20 GM/30 ML UDC (FOR ORAL USE ONLY) PO SCH ×3 (06:16→21:17)
[2020-03-13] MEDS: MAG HYDROX/AL HYDROX/SIMETH 30 ML UNIT-DOSE CUP PO PRN (08:54)
[2020-03-13] MEDS ORDERED: PT OWN MED DRAWER 7, Y5N ONE ×2 (09:06→20:41)
[2020-03-13] MEDS: QUEtiapine FUMARATE 200 MG TABLET PO SCH ×2 (09:55→21:17)
[2020-03-13] MEDS: PRENATAL VITAMINS W/ FOLIC ACID TABLET (FP) PO SCH (09:55)
[2020-03-13] MEDS: amLODIPine BESYLATE 5 MG TABLET (FP) PO SCH (09:55)
[2020-03-13] MEDS: TAMSULOSIN HCL 0.4 MG CAP PO SCH (09:55)
[2020-03-13] MEDS: NICOTINE 7 MG/24 HOURS TOPICAL PATCH TD SCH (09:56)
--- NOTE | 2020-03-13 14:12 | PN ---
[facility] Progress Note Note: Nurse reported that patient is refusing Lactulose. Laboratory Last Values Ammonia 42.80 umol/L (11-32) H 03/12/ 08:14 Vital Signs Period Temp Pulse Resp BP Sys/Montesinos Pulse Ox Last 24 Hr 97.8 F 96-99 20 138-139/81-88 96-97 General: No apparent distress, resting comfortably HEENTM: EOMI, PERRLA, normocephalic Neck: supple Lungs: no respiratory distress or use of accessory muscles MSK: full weight bearing, full ROM Neuro: A =O x4, CN 2-12 intact, speech clear and logical. A/P Elevated ammonia leve Explained to patient the consequences of elevated ammonia level Patient agreed to continue lactulose, Ammonia level ordered for 03/15
[2020-03-13] MEDS ORDERED: ATORVASTATIN CA 40 MG TABLET (FP) ONE (20:41)
[2020-03-13] MEDS: AMITRIPTYLINE HCL 25 MG TABLET PO SCH (21:18)
[2020-03-13] MEDS: MELATONIN 5 MG TABLETS PO SCH (21:18)
[2020-03-13] MEDS: ATORVASTATIN CA 80 MG TABLET (FP) PO SCH (21:18)
[2020-03-13] MEDS: THIAMINE HCL 100 MG TABLET (FP) PO SCH (21:18)
[2020-03-14] MEDS: LACTULOSE 20 GM/30 ML UDC (FOR ORAL USE ONLY) PO SCH ×3 (06:02→21:09)
[2020-03-14] MEDS: GABAPENTIN 400 MG CAPSULE PO SCH ×3 (06:02→21:10)
[2020-03-14] MEDS: TAMSULOSIN HCL 0.4 MG CAP PO SCH (10:01)
[2020-03-14] MEDS: NICOTINE 7 MG/24 HOURS TOPICAL PATCH TD SCH (10:01)
[2020-03-14] MEDS: QUEtiapine FUMARATE 200 MG TABLET PO SCH ×2 (10:02→21:10)
[2020-03-14] MEDS: amLODIPine BESYLATE 5 MG TABLET (FP) PO SCH (10:02)
[2020-03-14] MEDS: PRENATAL VITAMINS W/ FOLIC ACID TABLET (FP) PO SCH (10:02)
[2020-03-14] MEDS ORDERED: PT OWN MED DRAWER 7, Y5N ONE (13:24)
[2020-03-14] MEDS: MAG HYDROX/AL HYDROX/SIMETH 30 ML UNIT-DOSE CUP PO PRN (15:17)
[2020-03-14] MEDS ORDERED: ATORVASTATIN CA 40 MG TABLET (FP) ONE (19:52)
[2020-03-14] MEDS: AMITRIPTYLINE HCL 25 MG TABLET PO SCH (21:09)
[2020-03-14] MEDS: ATORVASTATIN CA 80 MG TABLET (FP) PO SCH (21:10)
[2020-03-14] MEDS: THIAMINE HCL 100 MG TABLET (FP) PO SCH (21:10)
[2020-03-14] MEDS: MELATONIN 5 MG TABLETS PO SCH (21:11)
[2020-03-15] MEDS: LACTULOSE 20 GM/30 ML UDC (FOR ORAL USE ONLY) PO SCH ×3 (06:06→21:24)
[2020-03-15] MEDS: GABAPENTIN 400 MG CAPSULE PO SCH ×3 (06:07→21:25)
[2020-03-15] MEDS: QUEtiapine FUMARATE 200 MG TABLET PO SCH ×2 (09:56→21:25)
[2020-03-15] MEDS: TAMSULOSIN HCL 0.4 MG CAP PO SCH (09:56)
[2020-03-15] MEDS: amLODIPine BESYLATE 5 MG TABLET (FP) PO SCH (09:57)
[2020-03-15] MEDS: NICOTINE 7 MG/24 HOURS TOPICAL PATCH TD SCH (09:57)
[2020-03-15] MEDS: PRENATAL VITAMINS W/ FOLIC ACID TABLET (FP) PO SCH (09:57)
[2020-03-15] MEDS: MAG HYDROX/AL HYDROX/SIMETH 30 ML UNIT-DOSE CUP PO PRN (17:37)
[2020-03-15] MEDS ORDERED: ATORVASTATIN CA 40 MG TABLET (FP) ONE (20:42)
[2020-03-15] MEDS: AMITRIPTYLINE HCL 25 MG TABLET PO SCH (21:24)
[2020-03-15] MEDS: THIAMINE HCL 100 MG TABLET (FP) PO SCH (21:25)
[2020-03-15] MEDS: MELATONIN 5 MG TABLETS PO SCH (21:25)
[2020-03-15] MEDS: ATORVASTATIN CA 80 MG TABLET (FP) PO SCH (21:25)
[2020-03-16] MEDS: LACTULOSE 20 GM/30 ML UDC (FOR ORAL USE ONLY) PO SCH ×3 (06:11→21:36)
[2020-03-16] MEDS: GABAPENTIN 400 MG CAPSULE PO SCH ×3 (06:11→21:36)
[2020-03-16] MEDS: NICOTINE 7 MG/24 HOURS TOPICAL PATCH TD SCH (09:49)
[2020-03-16] MEDS: PRENATAL VITAMINS W/ FOLIC ACID TABLET (FP) PO SCH (09:49)
[2020-03-16] MEDS: amLODIPine BESYLATE 5 MG TABLET (FP) PO SCH (09:49)
[2020-03-16] MEDS: QUEtiapine FUMARATE 200 MG TABLET PO SCH ×2 (09:49→21:37)
[2020-03-16] MEDS: TAMSULOSIN HCL 0.4 MG CAP PO SCH (09:49)
[2020-03-16] MEDS: MAG HYDROX/AL HYDROX/SIMETH 30 ML UNIT-DOSE CUP PO PRN (09:50)
[2020-03-16] MEDS ORDERED: PT OWN MED DRAWER 7, Y5N ONE (09:54)
--- NOTE | 2020-03-16 10:17 | PN ---
[facility] Progress Note Note: Vital Signs Temperature 97.5 F L 03/16/20 07:12 Pulse Rate 92 H 03/16/20 10:05 Respiratory Rate 18 03/16/20 07:12 Blood Pressure 120/78 03/16/20 10:05 O2 Sat by Pulse Oximetry (%) 97 03/16/20 07:12 Laboratory Last Values Ammonia 42.80 umol/L (11-32) H 03/12/20 08:14 stable repeat ammonia levels in AM
[2020-03-16] MEDS ORDERED: ATORVASTATIN CA 40 MG TABLET (FP) ONE (19:31)
[2020-03-16] MEDS: MELATONIN 5 MG TABLETS PO SCH (21:36)
[2020-03-16] MEDS: THIAMINE HCL 100 MG TABLET (FP) PO SCH (21:36)
[2020-03-16] MEDS: AMITRIPTYLINE HCL 25 MG TABLET PO SCH (21:36)
[2020-03-16] MEDS: ATORVASTATIN CA 80 MG TABLET (FP) PO SCH (21:37)
[2020-03-17] MEDS: LACTULOSE 20 GM/30 ML UDC (FOR ORAL USE ONLY) PO SCH ×4 (06:33→21:43)
[2020-03-17] MEDS: GABAPENTIN 400 MG CAPSULE PO SCH ×3 (06:33→21:45)
[2020-03-17] MEDS: TAMSULOSIN HCL 0.4 MG CAP PO SCH (09:43)
[2020-03-17] MEDS: PRENATAL VITAMINS W/ FOLIC ACID TABLET (FP) PO SCH (09:43)
[2020-03-17] MEDS: QUEtiapine FUMARATE 200 MG TABLET PO SCH ×2 (09:43→21:42)
[2020-03-17] MEDS: amLODIPine BESYLATE 5 MG TABLET (FP) PO SCH (09:43)
[2020-03-17] MEDS: NICOTINE 7 MG/24 HOURS TOPICAL PATCH TD SCH (09:44)
[2020-03-17] MEDS: MAG HYDROX/AL HYDROX/SIMETH 30 ML UNIT-DOSE CUP PO PRN ×2 (09:44→18:59)
--- NOTE | 2020-03-17 17:49 | PN ---
[facility] Progress Note Note: ammonia level is 71.60,increase lactulose to 20 grams po qid,repeat ammonia level on Thu03/19/20
[2020-03-17] MEDS ORDERED: ATORVASTATIN CA 40 MG TABLET (FP) ONE (20:44)
[2020-03-17] MEDS: MELATONIN 5 MG TABLETS PO SCH (21:42)
[2020-03-17] MEDS: THIAMINE HCL 100 MG TABLET (FP) PO SCH (21:42)
[2020-03-17] MEDS: AMITRIPTYLINE HCL 25 MG TABLET PO SCH (21:42)
[2020-03-17] MEDS: ATORVASTATIN CA 80 MG TABLET (FP) PO SCH (21:43)
[2020-03-18] MEDS: GABAPENTIN 400 MG CAPSULE PO SCH ×3 (06:13→21:13)
[2020-03-18] MEDS: amLODIPine BESYLATE 5 MG TABLET (FP) PO SCH (09:41)
[2020-03-18] MEDS: LACTULOSE 20 GM/30 ML UDC (FOR ORAL USE ONLY) PO SCH ×4 (09:41→21:13)
[2020-03-18] MEDS: QUEtiapine FUMARATE 200 MG TABLET PO SCH ×2 (09:41→21:13)
[2020-03-18] MEDS: TAMSULOSIN HCL 0.4 MG CAP PO SCH (09:41)
[2020-03-18] MEDS: PRENATAL VITAMINS W/ FOLIC ACID TABLET (FP) PO SCH (09:41)
[2020-03-18] MEDS: MAG HYDROX/AL HYDROX/SIMETH 30 ML UNIT-DOSE CUP PO PRN (09:42)
[2020-03-18] MEDS: NICOTINE 7 MG/24 HOURS TOPICAL PATCH TD SCH (09:43)
[2020-03-18] MEDS ORDERED: ATORVASTATIN CA 40 MG TABLET (FP) ONE (19:44)
[2020-03-18] MEDS: THIAMINE HCL 100 MG TABLET (FP) PO SCH (21:13)
[2020-03-18] MEDS: ATORVASTATIN CA 80 MG TABLET (FP) PO SCH (21:13)
[2020-03-18] MEDS: AMITRIPTYLINE HCL 25 MG TABLET PO SCH (22:45)
[2020-03-18] MEDS: MELATONIN 5 MG TABLETS PO SCH (22:46)
[2020-03-19] MEDS: GABAPENTIN 400 MG CAPSULE PO SCH ×3 (06:10→21:11)
[2020-03-19] MEDS: TAMSULOSIN HCL 0.4 MG CAP PO SCH (10:38)
[2020-03-19] MEDS: amLODIPine BESYLATE 5 MG TABLET (FP) PO SCH (10:38)
[2020-03-19] MEDS: LACTULOSE 20 GM/30 ML UDC (FOR ORAL USE ONLY) PO SCH (10:38)
[2020-03-19] MEDS: QUEtiapine FUMARATE 200 MG TABLET PO SCH ×2 (10:38→21:11)
[2020-03-19] MEDS: NICOTINE 7 MG/24 HOURS TOPICAL PATCH TD SCH (10:38)
[2020-03-19] MEDS: PRENATAL VITAMINS W/ FOLIC ACID TABLET (FP) PO SCH (10:38)
[2020-03-19] MEDS ORDERED: ATORVASTATIN CA 40 MG TABLET (FP) ONE (19:07)
[2020-03-19] MEDS ORDERED: PT OWN MED DRAWER 7, Y5N ONE ×2 (19:22→21:19)
[2020-03-19] MEDS: MELATONIN 5 MG TABLETS PO SCH (21:11)
[2020-03-19] MEDS: THIAMINE HCL 100 MG TABLET (FP) PO SCH (21:11)
[2020-03-19] MEDS: AMITRIPTYLINE HCL 25 MG TABLET PO SCH (21:11)
[2020-03-19] MEDS: ATORVASTATIN CA 80 MG TABLET (FP) PO SCH (21:12)
[2020-03-20] MEDS: GABAPENTIN 400 MG CAPSULE PO SCH ×3 (06:07→21:07)
[2020-03-20 06:54] VITALS: TEMP 97.1
[2020-03-20] MEDS ORDERED: PT OWN MED DRAWER 7, Y5N ONE ×3 (08:23→15:58)
--- NOTE | 2020-03-20 09:37 | DS ---
[facility] Rehab Discharge Summary - [facility] Rehab Discharge Summary Admission Date: 03/07/20 Discharge Date: 03/21/20 - History Present History: Alcohol dependence, Cocaine dependence Pertinent Past History: this 59 years old male with alcohol dependence,cocaine abuse last detox to 09/29/16 syncope denied seizure htn gerd bipolar disorder,ptsd longest sobriety 8 months unemployed,positive eye software development manager - Discharge Physical Exam Vital Signs: Vital Signs Temperature 97.1 F L 03/20/20 06:52 Pulse Rate 89 03/20/20 06:52 Respiratory Rate 18 03/20/20 06:52 Blood Pressure 131/73 03/20/20 06:52 O2 Sat by Pulse Oximetry (%) 96 03/20/20 06:52 Pertinent Admission Physical Exam Findings: Physical General Appearance: no apparent distress HEENTM:Normocephalic, ANDREW, EOMI Respiratory: No Respiratory Distress Neck: Supple, Cardiology: Regular Rhythm & Rate Abdominal: +Bowel Sounds, Non Tender Musculoskeletal: Full ROM, steady gait Neurological: patient support tech II-XII NML intact, Alert, Motor Strength 5/5 - Treatment Discharge Condition: Outpatient referral accepted (Medically stable for discharge. Patient is pending acceptance at [facility].) Hospital Course: Patient attended groups, had 1;1 with his counselor, was seen by the psychiatric service. His ammonia level was elevated upon admission to rehab and he was prescribed lactulose; he refused it several times, but agreed to take it with education and encouragement. Ammonia level upon discharge was within normal r virgilio. - Medication Discharge Medications: Ambulatory Orders Amlodipine Besylate [Norvasc -] 5 mg PO DAILY 03/03/20 Atorvastatin Ca [Lipitor] 80 mg PO HS 03/03/20 Gabapentin [Neurontin -] 400 mg PO Q8H 03/03/20 Tamsulosin HCl [Flomax] 0.4 mg PO DAILY 03/03/20 Amitriptyline HCl [Elavil -] 75 mg PO HS tablet 03/07/20 Quetiapine Fumarate [Seroquel -] 200 mg PO BID tablet 03/07/20 - Medication-Assisted Treatment (MAT) Medication-Assisted Treatment (MAT): No - Discharge Instructions Diet, activity, other medical instructions: Diet: as tolerated Activity: as tolerated Other medical instructions: Please follow up with aftercare referral. - Diagnosis (1) Alcohol dependence Current Visit: Yes Status: Chronic (2) Cocaine dependence Current Visit: Yes Status: Chronic - Follow-up Referral Minutes to complete discharge: 15 - AMA Did Patient Leave Against Medical Advice: No
[2020-03-20] MEDS: TAMSULOSIN HCL 0.4 MG CAP PO SCH (09:42)
[2020-03-20] MEDS: PRENATAL VITAMINS W/ FOLIC ACID TABLET (FP) PO SCH (09:42)
[2020-03-20] MEDS: NICOTINE 7 MG/24 HOURS TOPICAL PATCH TD SCH (09:42)
[2020-03-20] MEDS: amLODIPine BESYLATE 5 MG TABLET (FP) PO SCH (09:43)
[2020-03-20] MEDS: QUEtiapine FUMARATE 200 MG TABLET PO SCH ×2 (09:43→21:07)
[2020-03-20] MEDS ORDERED: ATORVASTATIN CA 40 MG TABLET (FP) ONE (19:39)
[2020-03-20] MEDS: MELATONIN 5 MG TABLETS PO SCH (21:07)
[2020-03-20] MEDS: AMITRIPTYLINE HCL 25 MG TABLET PO SCH (21:07)
[2020-03-20] MEDS: THIAMINE HCL 100 MG TABLET (FP) PO SCH (21:08)
[2020-03-20] MEDS: ATORVASTATIN CA 80 MG TABLET (FP) PO SCH (21:09)
[2020-03-21] MEDS: GABAPENTIN 400 MG CAPSULE PO SCH (06:10)
[2020-03-21 06:57] VITALS: BP 134/90; PULSE 81
== END 2020-03-21 09:05 | disposition home or self-care (01) | DRG 772 ==
LOC: YASAS 09:58 → Y3E 10:01
PROVIDERS: ADMIT Allergy & Immunology; ATTEND Allergy & Immunology
PROC: HZ42ZZZ Group Counseling for Substance Abuse Treatment, Cognitive-Behavioral (ICD-10-PCS; principal; 2020-03-17)
DX: F10.20 Alcohol dependence, uncomplicated (principal); F14.20 Cocaine dependence, uncomplicated; F17.210 Nicotine dependence, cigarettes, uncomplicated; F19.280 Other psychoactive substance dependence with psychoactive substance-induced anxiety disorder; F19.282 Other psychoactive substance dependence with psychoactive substance-induced sleep disorder; F31.9 Bipolar disorder, unspecified; F33.1 Major depressive disorder, recurrent, moderate; I10 Essential (primary) hypertension; K21.9 Gastro-esophageal reflux disease without esophagitis; E78.5 Hyperlipidemia, unspecified; N40.0 Benign prostatic hyperplasia without lower urinary tract symptoms; E66.9 Obesity, unspecified; Z68.32 Body mass index [BMI] 32.0-32.9, adult; Z86.19 Personal history of other infectious and parasitic diseases; Z56.0 Unemployment, unspecified; Z88.8 Allergy status to other drugs, medicaments and biological substances
CPT/HCPCS: 82140

== ENCOUNTER 2023-02-02 13:04 | Inpatient (IN) | payer OTHER ==
[2023-02-02 14:04] VITALS: BMI 29.0
[2023-02-02] MEDS ORDERED: NALOXONE HCL (KLOXXADO) 8 MG SPRAY NS PRN (15:15)
[2023-02-02] MEDS ORDERED: hydrOXYzine PAMOATE 25 MG CAPSULE (FP) PO PRN (15:15)
[2023-02-02] MEDS ORDERED: guaiFENesin 600 MG TABLET.ER (FP) PO PRN (15:15)
[2023-02-02] MEDS ORDERED: IBUPROFEN 400 MG TABLET (FP) PO PRN (15:15)
[2023-02-02] MEDS ORDERED: NICOTINE 10 MG CARTRIDGE (INHALER) IH PRN (15:15)
[2023-02-02] MEDS ORDERED: LOPERAMIDE HCL 2 MG CAPSULE PO PRN (15:15)
[2023-02-02] MEDS ORDERED: ONDANSETRON *ODT* 4 MG TABLET SL PRN (15:15)
[2023-02-02] MEDS ORDERED: NALOXONE HCL 0.4 MG/ML VIAL IM PRN (15:15)
[2023-02-02] MEDS ORDERED: ACETAMINOPHEN 325 MG TABLET (FP) PO PRN (15:15)
[2023-02-02] MEDS ORDERED: MAGNESIUM HYDROX 2400MG/30ML ORAL SUSPENSION 30 ML CUP PO PRN (15:15)
[2023-02-02] MEDS ORDERED: BISMUTH SUBSALICYLATE 524 MG/30 ML PO PRN (15:15)
[2023-02-02] MEDS ORDERED: POLYETHYLENE GLYCOL (HEALTHYLAX) 3350 17 GM PACKET PO PRN (15:15)
[2023-02-02] MEDS ORDERED: BENZOCAINE/MENTHOL (CHLORASEPTIC ) LOZENGE MM PRN (15:15)
[2023-02-02] MEDS ORDERED: MAG HYDROX/AL HYDROX/SIMETH 30 ML UNIT-DOSE CUP PO PRN (15:15)
[2023-02-02] MEDS ORDERED: DICYCLOMINE HCL 10 MG CAPSULE PO PRN (15:15)
[2023-02-02] MEDS ORDERED: BENZONATATE 200 MG CAPSULE PO PRN (15:15)
[2023-02-02] MEDS ORDERED: GABAPENTIN 400 MG CAPSULE PO SCH (15:30)
[2023-02-02] MEDS: TAMSULOSIN HCL 0.4 MG CAP PO SCH (18:58)
[2023-02-02] MEDS: amLODIPine BESYLATE 5 MG TABLET (FP) PO SCH (18:59)
[2023-02-02] MEDS: NICOTINE 14 MG/24 HOURS TOPICAL PATCH TD SCH (18:59)
[2023-02-02] MEDS: QUEtiapine FUMARATE 200 MG TABLET PO SCH (21:53)
[2023-02-02] MEDS: MELATONIN 5 MG TABLETS PO SCH (21:53)
[2023-02-02] MEDS: THIAMINE HCL 100 MG TABLET (FP) PO SCH (21:53)
[2023-02-02] MEDS: ATORVASTATIN CA 80 MG TABLET (FP) PO SCH (21:53)
[2023-02-02] MEDS: GABAPENTIN 400 MG CAPSULE PO SCH (21:54)
[2023-02-02] MEDS: AMITRIPTYLINE HCL 25 MG TABLET PO SCH (21:54)
[2023-02-03] MEDS: GABAPENTIN 400 MG CAPSULE PO SCH ×3 (06:00→22:16)
[2023-02-03 09:43] LABS: HEMATOCRIT 40.7 % (35.4-49); HEMOGLOBIN 13.6 GM/dL (11.7-16.9); MCH 29.9 pg (25.7-33.7); MCHC 33.5 g/dl (32.0-35.9); MEAN CELL VOLUME 89.1 fl (80-96); MEAN PLT VOLUME 8.8 fl (7.5-11.1); PLATELET COUNT 178 10^3/uL (134-434); RBC 4.57 M/mm3 (4.00-5.60); RDW 13.6 % (11.9-15.9); WHITE BLOOD COUNT 7.2 K/mm3 (4.0-10.0)
[2023-02-03 09:55] LABS: POTASSIUM 3.9 mmol/L (3.5-5.1)
[2023-02-03 09:57] LABS: CALCIUM 8.7 mg/dL (8.5-10.1)
[2023-02-03 09:58] LABS: ALBUMIN 3.3 g/dl (3.4-5.0); BLOOD UREA NITROGEN 6.8 mg/dL (7-18)
[2023-02-03 10:01] LABS: CREATININE 0.6 mg/dL (0.55-1.3)
[2023-02-03 10:03] LABS: BILIRUBIN,TOTAL 0.8 mg/dL (0.2-1); TOT PROT 6.4 g/dl (6.4-8.2)
[2023-02-03] MEDS: TAMSULOSIN HCL 0.4 MG CAP PO SCH (10:30)
[2023-02-03] MEDS: amLODIPine BESYLATE 5 MG TABLET (FP) PO SCH (10:30)
[2023-02-03] MEDS: QUEtiapine FUMARATE 200 MG TABLET PO SCH ×2 (10:30→22:16)
[2023-02-03] MEDS: PRENATAL VITAMINS W/ FOLIC ACID TABLET (FP) PO SCH (10:30)
[2023-02-03] MEDS: NICOTINE 14 MG/24 HOURS TOPICAL PATCH TD SCH (10:31)
[2023-02-03] MEDS: ATORVASTATIN CA 80 MG TABLET (FP) PO SCH (22:15)
[2023-02-03] MEDS: AMITRIPTYLINE HCL 25 MG TABLET PO SCH (22:16)
[2023-02-03] MEDS: MELATONIN 5 MG TABLETS PO SCH (22:16)
[2023-02-03] MEDS: THIAMINE HCL 100 MG TABLET (FP) PO SCH (22:16)
[2023-02-04] MEDS: IBUPROFEN 600 MG TABLET (FP) PO PRN ×2 (06:05→12:40)
[2023-02-04] MEDS: METHOCARBAMOL 500 MG TABLET PO PRN ×3 (06:05→22:31)
[2023-02-04] MEDS: GABAPENTIN 400 MG CAPSULE PO SCH ×2 (06:05→13:28)
[2023-02-04] MEDS: PRENATAL VITAMINS W/ FOLIC ACID TABLET (FP) PO SCH (10:16)
[2023-02-04] MEDS: NICOTINE 14 MG/24 HOURS TOPICAL PATCH TD SCH (10:16)
[2023-02-04] MEDS: TAMSULOSIN HCL 0.4 MG CAP PO SCH (10:16)
[2023-02-04] MEDS: amLODIPine BESYLATE 5 MG TABLET (FP) PO SCH (10:16)
[2023-02-04] MEDS: MELATONIN 5 MG TABLETS PO SCH (22:29)
[2023-02-04] MEDS: THIAMINE HCL 100 MG TABLET (FP) PO SCH (22:30)
[2023-02-04] MEDS: ATORVASTATIN CA 80 MG TABLET (FP) PO SCH (22:31)
[2023-02-04] MEDS: AMITRIPTYLINE HCL 25 MG TABLET PO SCH (22:31)
[2023-02-05 09:14] VITALS: BP 125/80; PULSE 79; RESP 18; TEMP 97.3
[2023-02-05] MEDS: NICOTINE 14 MG/24 HOURS TOPICAL PATCH TD SCH (09:33)
[2023-02-05] MEDS: amLODIPine BESYLATE 5 MG TABLET (FP) PO SCH (09:33)
[2023-02-05] MEDS: PRENATAL VITAMINS W/ FOLIC ACID TABLET (FP) PO SCH (09:33)
[2023-02-05] MEDS: TAMSULOSIN HCL 0.4 MG CAP PO SCH (09:33)
[2023-02-05] MEDS: METHOCARBAMOL 500 MG TABLET PO PRN (09:33)
== END 2023-02-05 10:04 | disposition home or self-care (01) | DRG 774 ==
LOC: YASAS 13:04 → SUATTDRO 13:04 → Y6N 15:33 → Y3N 15:43
PROVIDERS: ADMIT Allergy & Immunology; ATTEND Surgery
PROC: HZ2ZZZZ Detoxification Services for Substance Abuse Treatment (ICD-10-PCS; principal; 2023-02-02)
DX: F10.230 Alcohol dependence with withdrawal, uncomplicated (principal); F14.20 Cocaine dependence, uncomplicated; F17.210 Nicotine dependence, cigarettes, uncomplicated; F31.9 Bipolar disorder, unspecified; F19.280 Other psychoactive substance dependence with psychoactive substance-induced anxiety disorder; G47.00 Insomnia, unspecified; I10 Essential (primary) hypertension; K21.9 Gastro-esophageal reflux disease without esophagitis; N40.0 Benign prostatic hyperplasia without lower urinary tract symptoms
CPT/HCPCS: 36415; 80053; 85027; 86780; 87635; 87811; 93005; 93010

== ENCOUNTER 2024-04-01 11:39 | Inpatient (IN) | payer OTHER ==
[2024-04-01 12:57] VITALS: BMI 29.2
[2024-04-01] MEDS ORDERED: METOPROLOL TARTRATE 25 MG TABLET (FP) PO ONE (13:05)
[2024-04-01] MEDS ORDERED: NICOTINE POLACRILEX 2 MG LOZENGE BC PRN (13:06)
[2024-04-01] MEDS ORDERED: BENZONATATE 200 MG CAPSULE PO PRN (13:06)
[2024-04-01] MEDS ORDERED: MAGNESIUM HYDROX 2400MG/30ML ORAL SUSPENSION 30 ML CUP PO PRN (13:06)
[2024-04-01] MEDS ORDERED: DICYCLOMINE HCL 10 MG CAPSULE PO PRN (13:06)
[2024-04-01] MEDS ORDERED: guaiFENesin 600 MG TABLET.ER (FP) PO PRN (13:06)
[2024-04-01] MEDS ORDERED: POLYETHYLENE GLYCOL (HEALTHYLAX) 3350 17 GM PACKET PO PRN (13:06)
[2024-04-01] MEDS ORDERED: IBUPROFEN 400 MG TABLET (FP) PO PRN (13:06)
[2024-04-01] MEDS ORDERED: ONDANSETRON *ODT* 4 MG TABLET SL PRN (13:06)
[2024-04-01] MEDS ORDERED: ACETAMINOPHEN 325 MG TABLET (FP) PO PRN (13:06)
[2024-04-01] MEDS ORDERED: LOPERAMIDE HCL 2 MG CAPSULE PO PRN (13:06)
[2024-04-01] MEDS ORDERED: IBUPROFEN 600 MG TABLET (FP) PO PRN (13:06)
[2024-04-01] MEDS ORDERED: BENZOCAINE/MENTHOL (CHLORASEPTIC ) LOZENGE MM PRN (13:06)
[2024-04-01] MEDS ORDERED: NICOTINE POLACRILEX 2 MG GUM BUC PRN (13:06)
[2024-04-01] MEDS: METOPROLOL TARTRATE 25 MG TABLET (FP) PO ONE (15:35)
[2024-04-01] MEDS: METHOCARBAMOL 500 MG TABLET PO PRN (17:30)
[2024-04-01] MEDS: hydrOXYzine PAMOATE 25 MG CAPSULE (FP) PO PRN (17:30)
[2024-04-01] MEDS: diazePAM 5 MG TABLET PO ONE (21:24)
[2024-04-01] MEDS: MELATONIN 5 MG TABLETS PO SCH (22:44)
[2024-04-01] MEDS: THIAMINE 100 MG TABLET PO SCH (22:44)
[2024-04-01] MEDS: ATORVASTATIN CA 80 MG TABLET (FP) PO SCH (22:44)
[2024-04-01] MEDS: diazePAM 5 MG TABLET PO SCH (22:47)
[2024-04-02] MEDS: TAMSULOSIN HCL 0.4 MG CAP PO SCH (08:12)
[2024-04-02] MEDS: PRENATAL VITAMINS W/ FOLIC ACID TABLET (FP) PO SCH (10:11)
[2024-04-02] MEDS: FAMOTIDINE 20 MG TABLET PO SCH (10:11)
[2024-04-02] MEDS: amLODIPine BESYLATE 10 MG TABLET (FP) PO SCH (10:11)
[2024-04-02 11:43] LABS: HEMATOCRIT 41.5 % (35.4-49); HEMOGLOBIN 13.6 GM/dL (11.7-16.9); MCH 30.2 pg (25.7-33.7); MCHC 32.7 g/dl (32.0-35.9); MEAN CELL VOLUME 92.5 fl (80-96); MEAN PLT VOLUME 9.1 fl (7.5-11.1); PLATELET COUNT 154 10^3/uL (134-434); RBC 4.49 M/mm3 (4.00-5.60); RDW 13.9 % (11.9-15.9); WHITE BLOOD COUNT 5.5 K/mm3 (4.0-10.0)
[2024-04-02 11:46] LABS: POTASSIUM 4.6 mmol/L (3.5-5.1)
[2024-04-02 11:52] LABS: ALBUMIN 3.7 g/dl (3.4-5.0); BLOOD UREA NITROGEN 11.3 mg/dL (7-18); CALCIUM 9.2 mg/dL (8.5-10.1)
[2024-04-02 11:55] LABS: CREATININE 0.9 mg/dL (0.55-1.3)
[2024-04-02 11:57] LABS: BILIRUBIN,TOTAL 0.7 mg/dL (0.2-1); TOT PROT 6.6 g/dl (6.4-8.2)
[2024-04-02] MEDS: GABAPENTIN 400 MG CAPSULE PO SCH (14:33)
[2024-04-02] MEDS: diazePAM 5 MG TABLET PO PRN (21:50)
[2024-04-02] MEDS: OLANZapine 5 MG TABLET PO SCH (22:35)
[2024-04-02] MEDS: AMITRIPTYLINE HCL 25 MG TABLET PO SCH (22:36)
[2024-04-02] MEDS: MAG HYDROX/AL HYDROX/SIMETH 30 ML UNIT-DOSE CUP PO PRN (22:42)
[2024-04-03] MEDS: diazePAM 5 MG TABLET PO SCH (05:25)
[2024-04-04] MEDS: diazePAM 5 MG TABLET PO SCH (05:43)
[2024-04-04] MEDS: BISMUTH SUBSALICYLATE 262 MG/15 ML BTL PO PRN (22:14)
[2024-04-05] MEDS: diazePAM 5 MG TABLET PO ONE (05:48)
[2024-04-05 09:04] VITALS: BP 154/86; PULSE 88; RESP 17; TEMP 97.1
[2024-04-05] MEDS: amLODIPine BESYLATE 5 MG TABLET (FP) PO SCH (09:13)
== END 2024-04-05 12:05 | disposition home or self-care (01) | DRG 775 ==
LOC: YASAS 11:39 → Y6N 13:48
PROVIDERS: ADMIT Allergy & Immunology; ATTEND Surgery
PROC: HZ2ZZZZ Detoxification Services for Substance Abuse Treatment (ICD-10-PCS; principal; 2024-03-31)
DX: F10.230 Alcohol dependence with withdrawal, uncomplicated (principal); F12.20 Cannabis dependence, uncomplicated; F17.210 Nicotine dependence, cigarettes, uncomplicated; F25.1 Schizoaffective disorder, depressive type; F33.1 Major depressive disorder, recurrent, moderate; F43.10 Post-traumatic stress disorder, unspecified; F19.982 Other psychoactive substance use, unspecified with psychoactive substance-induced sleep disorder; F19.980 Other psychoactive substance use, unspecified with psychoactive substance-induced anxiety disorder; I10 Essential (primary) hypertension; K21.9 Gastro-esophageal reflux disease without esophagitis; N40.0 Benign prostatic hyperplasia without lower urinary tract symptoms; B18.2 Chronic viral hepatitis C; E78.5 Hyperlipidemia, unspecified; G47.00 Insomnia, unspecified; Z86.19 Personal history of other infectious and parasitic diseases; Z88.8 Allergy status to other drugs, medicaments and biological substances; Z56.0 Unemployment, unspecified
CPT/HCPCS: 36415; 80053; 80305; 80307; 85027; 86593; 86780